=== PATIENT | male | born 1960 | race Caucasian/White ===

== ENCOUNTER 2020-03-19 01:48 | Emergency (ER) | payer OTHER ==
[~2020-03-19] VITALS: Ht 172.7 cm; Wt 86.2 kg
[2020-03-19 01:48] VITALS: BP 134/84
[2020-03-19] MEDS ORDERED: NOHOMEMEDICATIONS (01:55)
[2020-03-19] MEDS ORDERED: CEFUROXIME500 MG PO (02:19)
[2020-03-19] MEDS ORDERED: DOXYCYCLINE 10100 MG PO (02:19)
[2020-03-19] MEDS ORDERED: VIRTUSSIN AC L118 ML PO (02:19)
== END 2020-03-19 02:49 | disposition home or self-care (01) ==
LOC: ER 01:48
DX: R05 Cough (principal); Z20.828 Contact with and (suspected) exposure to other viral communicable diseases; R50.9 Fever, unspecified; R51 Headache; R11.0 Nausea; R09.89 Other specified symptoms and signs involving the circulatory and respiratory systems; Z98.890 Other specified postprocedural states

== ENCOUNTER 2020-03-22 10:34 | Inpatient (IN) | payer OTHER ==
[~2020-03-22] VITALS: Ht 172.7 cm; Wt 68.6 kg
[2020-03-22] VITALS (20 sets, daily range): BP systolic 82–125; BP diastolic 52–83
[~2020-03-22 10:34] MED LIST: CEFUROXIME500 MG PO; DOXYCYCLINE 10100 MG PO; NOHOMEMEDICATIONS; VIRTUSSIN AC L118 ML PO
[2020-03-22 10:50] LABS: BASOPHILS 1.4 % (0.0-2.0); HEMATOCRIT 45.3 % (42.0-52.0); HEMOGLOBIN 15.7 gm/dL (14.0-18.0); LYMPHOCYTES 8.4 % (24.0-44.0); MCH 31.7 pg (26.0-34.0); MCHC 34.8 g/dL (28.0-37.0); MCV 91.1 fL (80.0-100.0); PLATELET COUNT 204 thou/uL (150-400); POLYS 85.2 % (36.0-66.0); RBC 4.97 mil/uL (4.50-6.00); RDW 13.7 % (10.5-14.5); WBC 10.6 thou/uL (4.0-11.0)
[2020-03-22 10:56] LABS: CALCIUM 8.2 mg/dL (8.5-10.1); CREATININE 1.2 mg/dL (0.7-1.3); POTASSIUM 3.5 mmol/L (3.5-5.1)
[2020-03-22 11:02] LABS: ALBUMIN 2.9 g/dL (3.4-5.0); DIRECT BILIRUBIN 0.2 mg/dL (<0.1-0.2); TOTAL BILIRUBIN 0.5 mg/dL (0.2-1.0); TOTAL PROTEIN 7.5 g/dL (6.4-8.2)
[2020-03-22 11:16] LABS: BE(vivo) -0.9 mmol/L (-2 to +3); HCO3 22.3 mmol/L (22.0-26.0); PO2 85.4 mmHg (80.0-100.0); pH 7.448 (7.360-7.450); sO2 96.9 % (92.0-98.0)
[2020-03-22 13:51] LABS: URINE BILIRUBIN NEGATIVE (Negative); URINE BLOOD 1+ (Negative); URINE CLARITY SL CLOUDY; URINE COLOR YELLOW; URINE GLUCOSE-RANDOM* NEGATIVE (Negative); URINE KETONES TRACE (Negative); URINE LEUKOCYTES-REFLEX NEGATIVE (Negative); URINE NITRITE-REFLEX NEGATIVE (Negative); URINE PROTEIN (DIPSTICK) 2+ (Negative); URINE SPECIFIC GRAVITY 1.025 (1.005-1.035); URINE UROBILINOGEN 0.2 E.U./dl (0.2-1.0)
[2020-03-22 14:20] LABS: BACTERIA-REFLEX None Seen /HPF (None Seen); CRYSTALS None Seen /LPF (None Seen); SQUAMOUS None Seen /LPF (0-3); URINE RBC 0-2 Rare /HPF (0-2); URINE WBC-REFLEX None Seen /HPF (0-5)
--- NOTE | 2020-03-22 18:15 | NUR ---
DR. BEDOYA PRESENT WITH RESPIRATORY ASSISTANCE. ETOMINDATE 40 MG IV, THEN SUCCINYLCHOLINE 40 MG IV GIVEN. BAGGED WITH 100% FIO2, THEN DR. BEDOYA PLACED A 7.5 ETT, 22CM AT TEETH. LUNGS SOUNDS PRESENT IN ALL LUNG LAUGHLIN, RT PLACED BITE BLOCK. PT BUCKING VENT, TACHYPNEIC, WHITE THIN SECRETIONS SUCTIONED. PROPOFOL INCREASED TO 70 MCG/KG/MIN FOR PT COMFORT. OG 65 CM PLACED WITH GASTRIC ASCULTATION PRESENT. PORTABLE CHEST XRAY COMPLETED.
--- NOTE | 2020-03-22 19:31 | NUR ---
VASCULAR ACCESS CONSULTED FOR PICC LINE. PT'S LABS,MEDS,HISTORY,ORDER AND CONSENT VERIFIED. ELFEGO BASILIC WAS WIDELY PATENT WITH USG. 5FR TL POWER PICC TRIMMED TO 48CM INSERTED TO 1CM EXTERNAL. STAT CXR ORDERED. DISCUSSED BENEFITS AND RISK WITH DAUGHTER, VERBALIZED UNDERSTANDING.
--- NOTE | 2020-03-22 19:57 | NUR ---
cxr confirmed picc placement, picc released for immediate use per protocol to john parada
--- NOTE | 2020-03-22 20:16 | NUR ---
PT ALERT AND ORIENTED TIMES FOUR ON ADMISSION TO ICU ROOM 241 AROUND 1720. PT ANSWERED ALL ASSESSMENT QUESTIONS. PT WAS ON A NON REBREATHER 15L. PT DID DENY ANY PAIN. PT INTUBATED AND SEDATED AROUND 1740
[2020-03-22 21:07] LABS: BE(vivo) -2.1 mmol/L (-2 to +3); HCO3 23.8 mmol/L (22.0-26.0); PCO2 44.6 mmHg (35.0-45.0); PO2 359.2 mmHg (80.0-100.0); pH 7.345 (7.360-7.450); sO2 99.8 % (92.0-98.0)
--- NOTE | 2020-03-22 21:10 | NUR ---
DR AARON CONTACTING PTS FAMILY RE REMDESIVIR. NURSE INSTRUCTED NOT TO INITIATE UNTIL DR AARON TALKED WITH . 2104 PROPOFOL DECREASED FROM 79 TO 74, BP 88/56.
--- NOTE | 2020-03-22 21:33 | NUR ---
LEFT DR AARON VOICE MAIL RE COVID SWAB NOT BEING RUN BY LAB UNTIL AM. PER REPORT FROM CHARGE NURSE, WAS WAITING ON RESULTS PRIOR TO TALKING WITH RE REDEMISVIR AND STARTING MEDICATION. NURSE NOT STARTING MEDICATION UNTIL RETURNS CALL.
--- NOTE | 2020-03-22 21:36 | NUR ---
DR AARON RETURNED CALL, NOT GIVING REDEMISVIR UNTIL SWAB TEST COMPLETED. DR AARON WANTS NURSES TO CALL HIM WITH RESULTS IN AM. CHARGE NURSE UPDATED.
--- NOTE | 2020-03-22 22:38 | NUR ---
HR 48, SBP96. PROPOFOL DECREASED TO 50, CHARGE NURSE UPDATED.
--- NOTE | 2020-03-22 23:43 | NUR ---
PT RESTING IN BED ON VENTILATOR. FENTANYL STARTED BY CHARGE NURSE. PROPOFOL TITRATED. . IVF AND ANTIBIOTICS INITIATED. CAMPOS TO DD, SCDS INTACT. RESTRAINTS SOFT WRIST INTACT. DAUGHTER CALLED FOR UPDATE, SHE IS HOME COVID POSITIVE, TEARFUL SHARING HER FEARS AND CONCERNS. STATED THAT HER FATHER ACTS A FATHER FIGURE TO SEVERAL OF HER FRIENDS AND HELPS TEACH BOXING AT A GYM. RESPIRATORY THERAPIST DECREASING FIO2 FROM 100% TO 70%.
[2020-03-23] VITALS (49 sets, daily range): BP systolic 84–110; BP diastolic 37–83
--- NOTE | 2020-03-23 02:15 | NUR ---
Titrated propofol to 45. hr 44.
--- NOTE | 2020-03-23 04:22 | NUR ---
Propofol decreased to 40, charge nurse updated.
[2020-03-23 05:11] LABS: BE(vivo) -5.3 mmol/L (-2 to +3); HCO3 20.2 mmol/L (22.0-26.0); PCO2 39.8 mmHg (35.0-45.0); PO2 131.6 mmHg (80.0-100.0); sO2 98.4 % (92.0-98.0)
[2020-03-23 05:13] LABS: pH 7.324 (7.360-7.450)
[2020-03-23 05:25] LABS: ABSOLUTE NEUTROPHILS 7.2 thou/uL (1.4-8.2); BASOPHILS 0.2 % (0.0-2.0); HEMATOCRIT 41.7 % (42.0-52.0); HEMOGLOBIN 14.1 gm/dL (14.0-18.0); MCH 31.6 pg (26.0-34.0); MCHC 33.8 g/dL (28.0-37.0); MCV 93.3 fL (80.0-100.0); MONOCYTES 4.5 % (1.0-8.0); PLATELET COUNT 205 thou/uL (150-400); POLYS 85.3 % (36.0-66.0); RBC 4.47 mil/uL (4.50-6.00); RDW 13.9 % (10.5-14.5); WBC 8.5 thou/uL (4.0-11.0)
[2020-03-23 05:35] LABS: FIBRINOGEN 510.9 mg/dL (210-360); INR 1.1; PROTIME 11.5 Seconds (9.3-11.4)
[2020-03-23 05:49] LABS: ALBUMIN 2.4 g/dL (3.4-5.0); CALCIUM 8.1 mg/dL (8.5-10.1); CREATININE 0.8 mg/dL (0.7-1.3); POTASSIUM 4.2 mmol/L (3.5-5.1); TOTAL BILIRUBIN 0.4 mg/dL (0.2-1.0); TOTAL PROTEIN 6.5 g/dL (6.4-8.2)
[2020-03-23 06:04] LABS: HIV ANTIBODY Non Reactive (Non Reactive)
--- NOTE | 2020-03-23 06:10 | NUR ---
SHARED VS WITH CHARGE NURSE, STOPPED PROPOFOL HR REMAINS 45, SBP 89. MONITORING FOR AWAKENING THEN WILL RESTART.
--- NOTE | 2020-03-23 07:58 | EKG ---
[facility] [place] [address] ELECTROCARDIOGRAM REPORT Name: RADHA KEITH Room #: 241-P ADM IN M.R.#: [id number] Admission: 03/22/20 Attend Phys: Todd Castro Discharge: Date of : 60 Report #: [id number] THIS REPORT FOR: cc: [facility] - Clinic physician unknown [facility] - Clinic physician unknown Bin Holland MD [facility] THIS REPORT FOR: //name// [facility] ED Test Date: 2020-03-22 Test Time: 10:46:46 Pat Name: RADHA KEITH Department: Room: [facility] Gender: M 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
--- NOTE | 2020-03-23 09:07 | NUR ---
Received consult to start enteral nutrition. Recommend vital high protein at 30ml/hr with goal of 55ml/hr while on propofol. Defer fluid needs to physician. Pt currently has ivf running
--- NOTE | 2020-03-23 10:15 | NUR ---
chart review. pt on vent, unable to visit with him. + for covid. he is from home, his daughter lives with him. she is at home + for covid as well. cm visited with daughter elijah via phone call, education on dcp and cm. " he was independent and active. just retired. no dme. drives vehicle. primary dr is dr elliott holley. he is helpful when people need it. please cont to let me know how he is do"/daughter. will cont following as needed for dc needs.
--- NOTE | 2020-03-23 10:31 | NUR ---
RN SPOKE WITH DR. AARON AND REPORTED POSITIVE COVID-[address] AARON STATED TO GO AHEAD AND GIVE ORDERED MEDICATION, SEE MAR. PHYSICIAN INSTRUCTED RN TO CALL NEXT OF KIN AND LET THEM KNOW PT WILL BE STARTED ON NEW MEDICATION, SEE MAR. RN SPOKE WITH PT'S DAUGHTER SALMA AND SHE STATED SHE WAS THANKFUL FOR THE UPDATE REGARDING COURSE OF TREATMENT.
--- NOTE | 2020-03-23 18:55 | NUR ---
SPOKE TO FISH PROCESSOR. KEEP LEVOPHED ON HAND IN CASE NEEDED FOR B/P SUPPORT. DO NOT START CARDIZEM GTT AT THIS TIME. GIVE 0.25 IV DIG X1 NOW AND GIVE 0.25 IV DIG AT 2200.
[2020-03-23 19:07] LABS: MAGNESIUM 2.5 mg/dL (1.8-2.4); POTASSIUM 3.5 mmol/L (3.5-5.1)
--- NOTE | 2020-03-23 20:18 | NUR ---
APPROXIMATELY 1715 PT'S BELL SPINNER SOUSAPHONES ALARMED FOR HIGH HR. PT HAD BEEN ALL SHIFT SB WITH A RATE BETWEEN 40-75. HR ON MONITOR SHOWED [address] AARON WAS PRESENT AND GAVE ORDER TO RN FOR STAT EKG AND TO CALL HOSPITALIST WITH RESULTS. EKG SHOWED AFIB. DR. REGAN, HOSPITALIST PAGED WITH NO CALL BACK. RN THEN PAGED DR. WELCH WHO IS ICU KNUCKLE STRAP SEWER. DR. WELCH GAVE ORDERS TO START CARDIZEM GTT, SEND ELECTROLYTES AND MAG TO LAB, ORDER LEVOPHED FOR B/P SUPPORT TO KEEP MAP >60 AND TO CONSULT CARDIOLOGY. CARDIOLOGY CONSULTED AND DR. SALINAS CALLED BACK. SEE NOTE ON HIS ORDERS. REPORT GIVEN TO FOOD PRESERVATION SCIENTIST RN WHO AGREED TO GIVE MEDS ORDERED SEE ORDERS AND MAR. PT REMAINED IN AFIB AT END OF DAY SHIFT WITH HR OF 115. PT IS CURRENTLY ON LOVENOX BID.
--- NOTE | 2020-03-23 20:28 | NUR ---
1530 RECTAL TEMP PROBE INSERTED.
--- NOTE | 2020-03-23 21:30 | NUR ---
DR. AARON ORDERED TYPE AND SCREEN FOR PT. 2100 CALLED AND LEFT MESSAGE WITH ANSWERING SERVICE WITH RESULTS.
[2020-03-24] VITALS (48 sets, daily range): BP systolic 81–113; BP diastolic 52–74
[2020-03-24 05:46] LABS: ABSOLUTE NEUTROPHILS 13.2 thou/uL (1.4-8.2); BASOPHILS 0.3 % (0.0-2.0); HEMATOCRIT 40.1 % (42.0-52.0); HEMOGLOBIN 13.4 gm/dL (14.0-18.0); LYMPHOCYTES 4.2 % (24.0-44.0); MCH 31.2 pg (26.0-34.0); MCHC 33.3 g/dL (28.0-37.0); MCV 93.8 fL (80.0-100.0); MONOCYTES 3.4 % (1.0-8.0); PLATELET COUNT 240 thou/uL (150-400); POLYS 92.1 % (36.0-66.0); RBC 4.28 mil/uL (4.50-6.00); WBC 14.3 thou/uL (4.0-11.0)
[2020-03-24 05:48] LABS: INR 1.1; PROTIME 11.3 Seconds (9.3-11.4)
[2020-03-24 05:53] LABS: FIBRINOGEN 508.6 mg/dL (210-360)
[2020-03-24 06:36] LABS: ALBUMIN 2.1 g/dL (3.4-5.0); CALCIUM 7.7 mg/dL (8.5-10.1); CREATININE 0.7 mg/dL (0.7-1.3); POTASSIUM 4.3 mmol/L (3.5-5.1); TOTAL BILIRUBIN 0.2 mg/dL (0.2-1.0); TOTAL PROTEIN 5.7 g/dL (6.4-8.2)
--- NOTE | 2020-03-24 07:55 | EKG ---
[facility] [place] [address] ELECTROCARDIOGRAM REPORT Name: RADHA KEITH Reinier Room #: 241-P ADM IN M.R.#: [id number] Admission: 03/22/20 Attend Phys: Todd Castro Discharge: Date of : 60 Report #: [id number] THIS REPORT FOR: cc: [facility] - Clinic physician unknown [facility] - Clinic physician unknown Bin Holland MD [facility] ~ THIS REPORT FOR: //name// [facility] Test Date: 2020-03-23 Test Time: 17:28:18 Pat Name: RADHA KEITH Department: Room: 241 P Gender: M Quality Improvement Analyst: Romulo HAMEED : 1960 Requested By: Mika Nicholas Order Number: [id number] MD: Bin Holland Measurements Intervals [place] Rate: 110 P: [place]: QRS: -52 QRSD: 88 T: 23 QT: 334 QTc: 452 Interpretive Statements Atrial fibrillation Left anterior fascicular block Abnormal R-wave progression, early transition Compared to ECG 03/22/2020 10:46:46 Sinus rhythm no longer present Electronically Signed On 03-24-2020 7:55:40 CDT by Bin Holland [email or web address] <ELECTRONICALLY SIGNED> By: Bin Holland MD, [facility] 03/24/20 0755 1728 1728 Bin Holland MD, [facility] /EPI
--- NOTE | 2020-03-24 16:09 | NUR ---
At approximately 1530, nurse spoke to patients daughter about his status. Patient is still receiving antibiotics and plans to be prone this afternoon. Patients daughter understands father is still critical and not progressing toward goals. Patient still requries high FiO2 and PEEP to remain stable.
[2020-03-25] VITALS (52 sets, daily range): BP systolic 82–118; BP diastolic 43–79
[2020-03-25 06:30] LABS: HEMATOCRIT 38.8 % (42.0-52.0); HEMOGLOBIN 13.1 gm/dL (14.0-18.0); MCH 31.2 pg (26.0-34.0); MCHC 33.7 g/dL (28.0-37.0); MCV 92.6 fL (80.0-100.0); RBC 4.18 mil/uL (4.50-6.00); RDW 14.3 % (10.5-14.5); WBC 13.9 thou/uL (4.0-11.0)
[2020-03-25 06:42] LABS: CALCIUM 7.6 mg/dL (8.5-10.1); CREATININE 0.7 mg/dL (0.7-1.3); POTASSIUM 4.3 mmol/L (3.5-5.1); TOTAL BILIRUBIN 0.3 mg/dL (0.2-1.0)
--- NOTE | 2020-03-25 07:44 | NUR ---
Pt taken out of prone position at 0530 this a.m. Pt tolerated proning well during the night. Breath sounds went from coarse through out at beginning of shift to clear and diminished at midnight. Tube feeding restarted at goal rate of 55 cc/hr when pt in semi-fowlers position this a.m. Adequate urine output this shift, 800 cc total.
--- NOTE | 2020-03-25 11:07 | NUR ---
If pt requires daily proning for >8hr, would increase final tube feed goal rate to 85ml/hr. Otherwise continue at 55ml/hr
[2020-03-25 15:40] LABS: T-SPOT.TB Negative
--- NOTE | 2020-03-25 18:32 | NUR ---
Patient is not progressing towards goals PAtiient unable to tolerate sedatin vacation or lightening up FiO2 and PEEP. Patient therefore still requires heavy support from mechanical ventilation. Patient converted to sinus breadycardia around 1005 this morning. Patient remains in the low 50's and 60's HR. Patient requires frequent suctioning for large volumes of sputum and has coughing fits where he desats but quickly recovers. Patient remains stable but is not improving.
[2020-03-26] VITALS (47 sets, daily range): BP systolic 90–126; BP diastolic 56–80
[2020-03-26 05:44] LABS: HEMATOCRIT 39.5 % (42.0-52.0); HEMOGLOBIN 13.2 gm/dL (14.0-18.0); MCH 31.5 pg (26.0-34.0); MCHC 33.4 g/dL (28.0-37.0); MCV 94.3 fL (80.0-100.0); RBC 4.19 mil/uL (4.50-6.00); RDW 14.1 % (10.5-14.5)
[2020-03-26 06:20] LABS: CREATININE 0.6 mg/dL (0.7-1.3); MAGNESIUM 2.8 mg/dL (1.8-2.4)
--- NOTE | 2020-03-26 07:52 | NUR ---
Pt has had intermittent periods of desaturation down to 82% when sedation lightened or if pt is layed supine. Sputum initially thick, white, blood tinged but now thinner and more frothy. Pt tolerating tube feeding well, no residuals, but did start having frequent liquid brown stools, small to large amounts, especially after coughing or suctioning. Flexiseal placed to maintain skin integrity and to insure accurate I&O. Monitor has remained sinus kendell, sinus rhythm, rates 45-64. Pt tolerating lower heart rate without compromise to blood pressure or circulation.
--- NOTE | 2020-03-26 09:00 | NUR ---
PATIENT NOTED TO DESAT WITH COUGHING, ATTEMPT TO SUCTION FROTHY LT PINK SPUTUM FROM ETT AND CLEAR SECRETIONS ORALLY. RECOVERS IN NORMA 5 MINS. PORTS ON PICC LINE ARE SLUGGISH AND WHITE PORT WILL NOT IRRIGATE. IV TEAM NOTIFIED.
[2020-03-26 11:00] LABS: BE(vivo) 1.6 mmol/L (-2 to +3); HCO3 27.5 mmol/L (22.0-26.0); PCO2 48.3 mmHg (35.0-45.0); PO2 56.5 mmHg (80.0-100.0); pH 7.373 (7.360-7.450); sO2 88.4 % (92.0-98.0)
--- NOTE | 2020-03-26 12:30 | NUR ---
DR DUNN AND DR WELCH IN AND AWARE OF ABG'S AND INFORMED OF DIFFICULTY WITH PICC LINE. PLAN TO INITIATE HEPARIN DRIP.
[2020-03-26 15:10] LABS: INR 1.3; PROTIME 13.4 Seconds (9.3-11.4)
--- NOTE | 2020-03-26 17:00 | NUR ---
PATIENT COUGHING AND PROPOFOL OFF FOR A FEW MINUTES. O2 SAT IN THE LOWER 80'S AND HEART RATE UP TO THE 70'S. BP INCREASED AND RESP RATE IN THE 20'S. DOES NOT TOLERATED BEING ON SEDATION VACATION.
--- NOTE | 2020-03-26 21:00 | NUR ---
PATIENT NOT PROGRESSING TOWARDS OUTCOME GOALS EVIDENT BY DESATING WITH COUGHING. HEPARIN DRIP STARTED AND BOLUS GIVEN PER ORDER. IV TEAM WORKING TO OPEN PICC LINE BUT UNABLE TO USE BUT ONE LINE, DR WELCH BY AND AWARE OF STATUS OF LINE. ORDERS NOTED TO PLACE NEW LINE IF UNABLE TO USE PRESENT PICC.
--- NOTE | 2020-03-26 23:03 | NUR ---
RISK, BENEFITS, AND ALTERNATIVE TREATMENT DISCUSSED WITH THE PATIENT'S RELATED TO CENTRAL LINE PLACEMENT. TEACHING GIVEN RELATED TO POSSIBLE COMPLICATIONS SUCH BLEEDING, INFECTION, CLOT, OR VESSEL PERFORATION. INSTRUCTION GIVEN RELATED TO CLABSI PREVENTION WITH LITERATURE PROVIDED. TRIPLE LUMEN CATHETER PLACED TO RIJ. ONE STICK AND NO COMPLICATIONS. PATIENT INTUBATED. NO COMPLICATIONS. PICC IN RUE DC'D PRIOR TO RIJ PLACEMENT. RIJ CATHETER TRIMMED TO 28CM. WITH 10 CM EXTERNAL. V.O. 10%. CHEST XRAY CONFIRMED TIP OF CATHETER IS IN SVC.
[2020-03-27] VITALS (17 sets, daily range): BP systolic 96–124; BP diastolic 54–79
--- NOTE | 2020-03-27 00:20 | NUR ---
PT BECAME VERY RESTLESS AND COUGHING PINK FROTHY SPUTUM. DR WELCH CALLED 60 MG LASIX IV GIVEN AND CXRAY DONE. WILL CONT TO MONITOR.
[2020-03-27 05:21] LABS: BE(vivo) 6.1 mmol/L (-2 to +3); HCO3 31.7 mmol/L (22.0-26.0); PCO2 49.1 mmHg (35.0-45.0); pH 7.428 (7.360-7.450); sO2 94.5 % (92.0-98.0)
[2020-03-27 05:32] LABS: HEMATOCRIT 42.2 % (42.0-52.0); HEMOGLOBIN 13.8 gm/dL (14.0-18.0); MCH 30.8 pg (26.0-34.0); MCHC 32.8 g/dL (28.0-37.0); MCV 93.8 fL (80.0-100.0); RBC 4.49 mil/uL (4.50-6.00); RDW 14.2 % (10.5-14.5); WBC 12.8 thou/uL (4.0-11.0)
--- NOTE | 2020-03-27 06:00 | NUR ---
REMAINS INTUBATED AND SEDATED NO FURTHER COUGHING SPELLS. DIURECED WELL 4000 CC UO THIS SHIFT. LUNGS CLEAR. REMAINS ON HEPARIN GTT. APTT THERAPUTIC. ISOLATION FOR COVID 19. WILL CONT TO MONITOR.
[2020-03-27 06:14] LABS: CALCIUM 8.3 mg/dL (8.5-10.1); CREATININE 0.8 mg/dL (0.7-1.3); POTASSIUM 3.7 mmol/L (3.5-5.1)
--- NOTE | 2020-03-27 11:25 | NUR ---
chart review. pt remains on vent with tf nutritional support. no anticpated dc over weekend.
--- NOTE | 2020-03-27 19:11 | NUR ---
ASSESSMENTS AND INTERVENTIONS DOCCUMENTED. NO MAJOR CONCERNS AT THIS TIME. PATIENT DESATS WHEN NOT ON SEDATION. PATIENT PROGRESSING TOAWARDS GOALS AT THIS TIME EVIDENCE BY BEING TITRATED DOWN ON O2
[2020-03-27 23:06] LABS: ADENOVIRUS Negative (Negative); INFLUENZA A Negative (Negative); INFLUENZA B Negative (Negative); METAPNEUMOVIRUS Negative (Negative); PARAINFLUENZA 1 Negative (Negative); PARAINFLUENZA 2 Negative (Negative); PARAINFLUENZA 3 Negative (Negative); RHINOVIRUS Negative (Negative); RSV A Negative (Negative); RSV B Negative (Negative)
[2020-03-28] VITALS (24 sets, daily range): BP systolic 105–138; BP diastolic 64–84
[2020-03-28 05:46] LABS: HEMATOCRIT 40.3 % (42.0-52.0); HEMOGLOBIN 13.5 gm/dL (14.0-18.0); MCH 31.6 pg (26.0-34.0); MCHC 33.6 g/dL (28.0-37.0); RBC 4.29 mil/uL (4.50-6.00); RDW 14.4 % (10.5-14.5); WBC 11.5 thou/uL (4.0-11.0)
[2020-03-28 06:08] LABS: CALCIUM 7.7 mg/dL (8.5-10.1); CREATININE 0.6 mg/dL (0.7-1.3); POTASSIUM 4.5 mmol/L (3.5-5.1)
--- NOTE | 2020-03-28 19:23 | NUR ---
NO PROGRESS TOWARDS GOALS. FIO2 AT 100%. LUNGS COURSE THROUGHOUT. ANY MOVEMENT OR ACTIVITY WITH PATIENT CAUSES SEVERE COUGHING WITH STRIDER-LIKE SOUND AND PT DESATS IMMEDIATELY TO LOW 80'S. NO PRONE TODAY DUE TO HIS DESATURATION WITH ACTIVITY OR MOVEMENT.
[2020-03-29] VITALS (24 sets, daily range): BP systolic 98–135; BP diastolic 51–87
[2020-03-29 05:33] LABS: HCO3 31.4 mmol/L (22.0-26.0); PO2 56.9 mmHg (80.0-100.0); pH 7.433 (7.360-7.450); sO2 90.2 % (92.0-98.0)
[2020-03-29 07:16] LABS: HEMATOCRIT 40.8 % (42.0-52.0); HEMOGLOBIN 13.7 gm/dL (14.0-18.0); MCH 31.2 pg (26.0-34.0); MCHC 33.5 g/dL (28.0-37.0); MCV 93.1 fL (80.0-100.0); RBC 4.38 mil/uL (4.50-6.00); RDW 14.4 % (10.5-14.5)
[2020-03-29 07:27] LABS: CALCIUM 8.2 mg/dL (8.5-10.1); CREATININE 0.7 mg/dL (0.7-1.3); POTASSIUM 4.4 mmol/L (3.5-5.1)
[2020-03-30] VITALS (23 sets, daily range): BP systolic 103–127; BP diastolic 58–75
--- NOTE | 2020-03-30 02:23 | NUR ---
PT IN PRONE POSITION UPON ASSUMPTION OF CARE AT 1900. TOLERATING SAID POSITION WELL WITH O2 SAT OF 98%. PT HAD BEEN IN PRONE POSITION SINCE NOON PER REPORT. PT WAS FLIPED TO SEMI-FOWLERS AT 0030. HE TOLERATED THE TURN WELL. TUBE FEEDING RESTARTED AT 0040. CURRENT O2 SAT OF 100%. SEDATION VACATION AT 0040 FOR 13 MINUTES; PT DOESNT OPEN EYES OR FOLLOW COMMANDS, BUT HE HAS POSITIVE COUGH/GAG, AND FACIAL GRIMACES TO PAIN. AVERAGE OF 75ML/HR U/O. PT IS STABLE, WILL CONTINUE TO MONITOR PER POC.
[2020-03-30 04:39] LABS: PO2 98.1 mmHg (80.0-100.0); pH 7.361 (7.360-7.450); sO2 97.1 % (92.0-98.0)
[2020-03-30 05:57] LABS: ABSOLUTE NEUTROPHILS 18.2 thou/uL (1.4-8.2); HEMATOCRIT 39.5 % (42.0-52.0); HEMOGLOBIN 13.3 gm/dL (14.0-18.0); LYMPHOCYTES 2.4 % (24.0-44.0); MCH 31.4 pg (26.0-34.0); MCHC 33.5 g/dL (28.0-37.0); MCV 93.5 fL (80.0-100.0); MONOCYTES 2.7 % (1.0-8.0); PLATELET COUNT 318 thou/uL (150-400); POLYS 94.9 % (36.0-66.0); RBC 4.23 mil/uL (4.50-6.00); RDW 14.3 % (10.5-14.5); WBC 19.2 thou/uL (4.0-11.0)
[2020-03-30 06:03] LABS: INR 1.3; PROTIME 13.8 Seconds (9.3-11.4)
[2020-03-30 06:24] LABS: ALBUMIN 1.7 g/dL (3.4-5.0); CREATININE 0.7 mg/dL (0.7-1.3); MAGNESIUM 2.4 mg/dL (1.8-2.4); PHOSPHORUS 3.3 mg/dL (2.5-4.9); POTASSIUM 4.9 mmol/L (3.5-5.1); TOTAL BILIRUBIN 0.5 mg/dL (0.2-1.0); TOTAL PROTEIN 6.3 g/dL (6.4-8.2)
--- NOTE | 2020-03-30 09:16 | NUR ---
bill with [facility] called and left message to offer assistance with dcp if needed. if he needs home care, have to use [facility] [phone], other question call bill at ext [phone].
--- NOTE | 2020-03-30 19:46 | NUR ---
SPOKE WITH DAUGHTER SALMA TODAY AND UPDATED HER ON PATIENT CONDITION. CONTINUES ON 100% FIO2 AND PEEP 14. PRONED TODAY AT NOON. AIR LEAK AROUND CUFF, TUBE VERY POSITIONAL. MAINTAINING VOLUMES AND SATS AT THIS TIME. DR. WELCH NOTIFIED AND ORDER RECIEVED TO DECREASE PEEP TO 12. TMAX 100. SR ON MONITOR. BP WNL. SEDATED WITH PROPOFOL AND FENTANYL. TOLERATING TUBE FEEDS AT GOAL.
[2020-03-31] VITALS (25 sets, daily range): BP systolic 91–136; BP diastolic 57–76
--- NOTE | 2020-03-31 00:38 | NUR ---
ASSUMED CARE OF PATIENT AT 1900. IN PRONE POSITION, HOWEVER VOLUMES NOT BEING MET, PATIENT TURNED BACK OVER. NO S/S OF DISTRESS THIS SHIFT. REMAINS ON 100% O2. NOT PROGRESSING TOWARDS POC GOALS.
[2020-03-31 05:21] LABS: BE(vivo) 8.9 mmol/L (-2 to +3); HCO3 37.5 mmol/L (22.0-26.0); PCO2 70.6 mmHg (35.0-45.0); PO2 107.4 mmHg (80.0-100.0); pH 7.343 (7.360-7.450); sO2 97.5 % (92.0-98.0)
[2020-03-31 05:58] LABS: HEMATOCRIT 38.9 % (42.0-52.0); HEMOGLOBIN 12.7 gm/dL (14.0-18.0); MCH 31.1 pg (26.0-34.0); MCHC 32.7 g/dL (28.0-37.0); MCV 95.3 fL (80.0-100.0); RBC 4.08 mil/uL (4.50-6.00); RDW 14.6 % (10.5-14.5); WBC 17.7 thou/uL (4.0-11.0)
[2020-03-31 06:33] LABS: ANION GAP < 0 mmol/L (7-16); BUN 27 mg/dL (7-18); CALCIUM 8.1 mg/dL (8.5-10.1); CHLORIDE 100 mmol/L (98-107); CO2 38 mmol/L (21-32); CREATININE 0.7 mg/dL (0.7-1.3); GLUCOSE 198 mg/dL (74-106); POTASSIUM 4.9 mmol/L (3.5-5.1); SODIUM 136 mmol/L (136-145)
--- NOTE | 2020-03-31 13:43 | NUR ---
PATIENT RE INTUBATED AT [address] WELCH WITH 2 RT ASSIST AND RN.
--- NOTE | 2020-03-31 15:54 | NUR ---
ETT POSITION EVALUATED. WHILE PALPATING ETT IN THE BACK OF THE ORAL PHARYNX, ETT WAS FOUND TO BE BENT TO THE POINT OF OCCLUSION. AN ATTEMPT TO PLACE IN NORMAL POSITION WAS UNSUCCESSFUL. PATENCY FUNCTION OF ETT BECAME QUESTIONALBE. TUBE WAS SUBSEQUENTLY WITHDRAWN AND PT WAS VENTILATED WITH BAG AND MASK UNTIL DR WELCH'S ARRIVAL. VITAL SIGNS AND SATS REMAINED STABLE DURING BAG/MASK VENTILATION AND RE-INTUBATION. ORDERS RECIEVED FOR CXR AND ABGS POST RE-INTUBATION.
[2020-03-31 15:55] LABS: BE(vivo) 7.6 mmol/L (-2 to +3); HCO3 35.3 mmol/L (22.0-26.0); PCO2 64.5 mmHg (35.0-45.0); PO2 127.1 mmHg (80.0-100.0); pH 7.356 (7.360-7.450); sO2 98.3 % (92.0-98.0)
--- NOTE | 2020-03-31 18:55 | NUR ---
PERIODICALS LIBRARY ASSISTANT PICKED UP EXTRA BAG OF FENTANYL AROUN 1720. MARCUS Silva RN WITNESSED.
[2020-04-01] VITALS (26 sets, daily range): BP systolic 96–147; BP diastolic 52–83
[2020-04-01 06:01] LABS: BE(vivo) 10.6 mmol/L (-2 to +3); HCO3 36.2 mmol/L (22.0-26.0); PCO2 52.1 mmHg (35.0-45.0); PO2 57.2 mmHg (80.0-100.0); sO2 90.7 % (92.0-98.0)
[2020-04-01 07:08] LABS: HEMATOCRIT 37.2 % (42.0-52.0); HEMOGLOBIN 12.4 gm/dL (14.0-18.0); MCH 31.3 pg (26.0-34.0); MCHC 33.4 g/dL (28.0-37.0); MCV 93.6 fL (80.0-100.0); RBC 3.97 mil/uL (4.50-6.00); RDW 14.8 % (10.5-14.5); WBC 21.3 thou/uL (4.0-11.0)
[2020-04-01 07:29] LABS: ANION GAP < 0 mmol/L (7-16); BUN 30 mg/dL (7-18); CALCIUM 7.8 mg/dL (8.5-10.1); CHLORIDE 101 mmol/L (98-107); CO2 38 mmol/L (21-32); CREATININE 0.7 mg/dL (0.7-1.3); GLUCOSE 190 mg/dL (74-106); POTASSIUM 4.8 mmol/L (3.5-5.1); SODIUM 138 mmol/L (136-145)
--- NOTE | 2020-04-01 07:53 | NUR ---
PT ON PROPOFOL AT 60MCG AND FENTANYL AT 50 MCG. SEDATION VACATION AT 2120 FOR 10 MINUTES; PT BECAME REALLY TACHYPNEIC, HAS A STRONG COUGH AND GAG REFLEX, FACIAL GRIMACES TO PAIN HOWEVER DOESNT FOLLOW CONMMANDS. FIOZ DECREASED TO 70% THIS SHIFT; SATS STABLE IN THE 96-99%. TEMP MAX OF 99.9, TYLENOL GIVEN. PT OVERBREATHING THE SET AC RATE, PROPOFOL INCREASED TO 70MCG THIS SHIFT. ASSESMENTS AND MEDS GIVEN ARE CHARTED. TOTAL U/O OF 900ML THIS SHIFT. PT IS STABLE, WILL CONTINUE TO MONITOR
--- NOTE | 2020-04-01 19:12 | NUR ---
ASSESSMENTS AND INTERVENTIONS DOCCUMENTED. PATIENT APPROPRIATE TO PRONE THIS SHIFT. PATIENT PRONED, NO MAJOR CONCERNS PATIENT TOLERATING IT WELL. PATIENT IS PROGRESSING TOWARDS GOALS AT THIS TIME EVIDENCE BY BEING ON 70% fio2 AND TOLERATING PRONE VENTILATION
[2020-04-02] VITALS (27 sets, daily range): BP systolic 87–142; BP diastolic 50–80
--- NOTE | 2020-04-02 02:36 | NUR ---
ASSUMED CARE OF PATIENT AT 1900. PRONE UNTIL 2300, ON BACK WITH ASSISTANCE OF RT AND 2 OTHER NURSES. FIO2 INCREASED TEMPORARILY. TOLERATED PRONING WELL. DAUGHTER SALMA CALLED FOR UPDATE. POC REVIEWED. SHE WOULD LIKE TO FACETIME IF POSSIBLE, WILL DISCUSS WITH AM STAFF. WORKING TOWARDS POC GOALS.
[2020-04-02 05:06] LABS: CREATININE 0.7 mg/dL (0.7-1.3); POTASSIUM 5.2 mmol/L (3.5-5.1)
--- NOTE | 2020-04-02 15:27 | NUR ---
ASSUMED CARE AT 0700. PT SEDATED ON VENTILATOR. CONTINUES WITH POC PER ORDERS. PRONE POSITIONING CHANGED- Q12H PER DR WELCH. APTT WAS CRITICALLY HIGH AT 1200- 86.5, DECREASED HEPARIN GTT PER PROTOCOL, RECHECK APTT AT 2049. ASSESSMENTS PER CHART. NAD NOTED EXCEPT WHEN TURNING PT TO LEFT SIDE TODAY PT DESATTED TO 82% AND BECAME TACHYPNIC. TOOK APPROX 15MIN TO RECOVER. WILL CONT TO MONITOR.
--- NOTE | 2020-04-02 15:27 | NUR ---
SW reviewed chart and spoke with nursing. Pt in ICU and in Enhanced Isolation due to COVID-19. Pt remains intubated. No ready for vent weaning trials. Pt has been febrile and is on IV abx. Pt finished course of Remdesivir. Pt will need therapy evals ordered when able to participate. DAVID is following to assist as needed with discharge planning.
[2020-04-03] VITALS (23 sets, daily range): BP systolic 82–140; BP diastolic 49–78
[2020-04-03 03:46] LABS: ABSOLUTE NEUTROPHILS 13.5 thou/uL (1.4-8.2); BASOPHILS 0.9 % (0.0-2.0); EOSINOPHILS 1.4 % (0.0-3.0); HEMATOCRIT 39.5 % (42.0-52.0); HEMOGLOBIN 12.8 gm/dL (14.0-18.0); LYMPHOCYTES 3.8 % (24.0-44.0); MCH 30.7 pg (26.0-34.0); MCHC 32.4 g/dL (28.0-37.0); MCV 94.7 fL (80.0-100.0); MONOCYTES 1.9 % (1.0-8.0); PLATELET COUNT 179 thou/uL (150-400); RBC 4.17 mil/uL (4.50-6.00); RDW 14.8 % (10.5-14.5); WBC 14.7 thou/uL (4.0-11.0)
[2020-04-03 04:00] LABS: ALBUMIN 1.5 g/dL (3.4-5.0); ANION GAP < 0 mmol/L (7-16); BUN 28 mg/dL (7-18); CALCIUM 7.9 mg/dL (8.5-10.1); CHLORIDE 99 mmol/L (98-107); CO2 41 mmol/L (21-32); CREATININE 0.7 mg/dL (0.7-1.3); GLUCOSE 145 mg/dL (74-106); POTASSIUM 4.7 mmol/L (3.5-5.1); SGOT 51 U/L (15-37); SGPT 32 U/L (30-65); SODIUM 136 mmol/L (136-145); TOTAL BILIRUBIN 0.8 mg/dL (0.2-1.0); TOTAL PROTEIN 6.1 g/dL (6.4-8.2)
[2020-04-03 04:01] LABS: INR 1.4; PROTIME 14.7 Seconds (9.3-11.4)
[2020-04-03 04:09] LABS: D-DIMER 13.47 ug/mLFEU (0.19-0.50); FIBRINOGEN 764.2 mg/dL (210-360)
[2020-04-03 05:39] LABS: HCO3 39.8 mmol/L (22.0-26.0); PO2 93.5 mmHg (80.0-100.0); sO2 96.5 % (92.0-98.0)
[2020-04-03 05:40] LABS: PCO2 73.8 mmHg (35.0-45.0)
--- NOTE | 2020-04-03 06:28 | NUR ---
ASSUMED CARE OF PATIENT AT 1900. PRONE UNTIL 0100. TOLERATED WELL. DAUGHTER CALLED WITH [employer] ON [employer]. SHE WAS ABLE TO SPEND ABOUT 15 MINUTES TALKING TO PATIENT. ALL QUESTIONS ANSWERED. NOT PROGRESSING WELL TOWARDS POC GOALS EVIDENCED BY CONTINUED HI FIO2 NEEDS.
--- NOTE | 2020-04-03 15:47 | NUR ---
SW reviewed chart. Pt remains in ICU in Enhanced Isolation due to COVID-19. Pt is intubated and sedated. No weekend discharge planned. SW is following to assist as needed with discharge planning.
--- NOTE | 2020-04-03 17:08 | NUR ---
RTLIJ CL REPLACED THE LINE PLACED BEFOR WAS MALPOSITIONED. PT MARISOL WELL. PLEASE SEE NI FOR
[2020-04-03 17:17] LABS: BE(vivo) 11.6 mmol/L (-2 to +3); PCO2 50.2 mmHg (35.0-45.0); pH 7.485 (7.360-7.450); sO2 95.3 % (92.0-98.0)
--- NOTE | 2020-04-03 19:53 | NUR ---
FIO2 AT .90% SEDATED WITH FENTANYL AND PROPOFOL EFFECTIVELY. PRONED AT 1730. TMAX 38.4. DID NOT SPEAK WITH DAUGHTER THIS SHIFT.
[2020-04-04] VITALS (25 sets, daily range): BP systolic 87–122; BP diastolic 51–71
--- NOTE | 2020-04-04 03:26 | NUR ---
ASSUMED CARE OF PATIENT AT 1900. IN PRONE POSITION. CXR RESULTS STATE PICC LINE CANNOT BE VISUALIZED. IV TEAM CALLED, LEFT MESSAGE. 2 PERIPHERAL LINES INFUSING GTTS. CONTINUES TO BECOME EXTREMELY TACHYPNIC AND TACHYCARDIC WHEN ANY SEDATION IS LOWERED. DAUGHTER CALLED THIS EVENING. UPDATED ON POC. WOULD LIKE TO SPEAK WITH A PHYSICIAN, STATES SHE HAS NOT TALKED TO ANY SINCE HER DAD HAS BEEN ADMITTED. DISCUSSED POSSIBLE NEED FOR TRACH. SHE STATES SHE WOULD WANT THAT SHOULD HE NEED IT. WILL PASS ON TO DAY SHIFT TO DISCUSS WITH PHYSICIANS. NO OTHER CONCERNS AT THIS TIME. WORKING TOWARDS POC GOALS.
[2020-04-04 05:06] LABS: CALCIUM 8.1 mg/dL (8.5-10.1); CREATININE 0.8 mg/dL (0.7-1.3)
--- NOTE | 2020-04-04 10:01 | NUR ---
ASSESSMENTS AND INTERVENTIONS DOCCUMENTED. PATIENT SEDATED AND RESTING. NO MAJOR CONCERNS AT THIS TIME. MAYNOR CRUZ RN CALLING TO CONFIRM PLACEMENT OF IJ. LINE IS IN PLACE AND IN USE.
[2020-04-05] VITALS (24 sets, daily range): BP systolic 89–122; BP diastolic 51–73
[2020-04-05 05:39] LABS: CALCIUM 8.1 mg/dL (8.5-10.1); CREATININE 0.8 mg/dL (0.7-1.3)
--- NOTE | 2020-04-05 06:00 | NUR ---
REMAINS INTUBATED AND SEDATED WITH PROPOFOL 70 MCG AND FENTANYL 50 MCG HEPARIN GTT AT 21.1 UNITS OR 17.5 CC/HR APTT 69.6 THERAPUTIC BATHED PT WAS IN PRONE POSITION FOR 12 HOURS. BACK TO BACK AT 0200. 1000 CC UO THIS SHIFT. FOLLOWS NO COMMANDS. REMAINS IN SINUS KIMBERLY TO SINUS RHYTHM. ZERO STOOL FROM FLEXISEAL WILL CONT TO MONITOR.
--- NOTE | 2020-04-05 19:02 | NUR ---
ASSUMED CARE AT 0700. ASSESSMENTS PER CHART. PT POSTIONED PRONE AT 1400 TODAY . INCREASED TF RATE TO 65ML/HR PER DIETARY RECOMMENDATION TO INCREASE TO GOAL OF 85ML/HR IF PT IS PRONING >8HRS DAY. ORDER UPDATED. PT TOLERATING PRONATION WELL. VSS. NO ACUTE DISTRESS THROUGHOUT SHIFT. PROGRESSING TOWARDS GOALS EVIDENCE BY FI02 DECREASED FROM 100 TO 80% TODAY AND MAINTAINING. REPORT GIVEN TO OSBALDO RODRIGUEZ FOR INSPECTOR MOTOR VEHICLES.
[2020-04-06] VITALS (24 sets, daily range): BP systolic 87–116; BP diastolic 49–68
--- NOTE | 2020-04-06 03:49 | NUR ---
ASSUMED CARE OF PATIENT AT 1900. IN PRONE POSITION UNTIL 0200. TOLERATES VERY WELL. NO S/S OF DISTRESS. DAUGHTER CALLED FOR UPDATE. STATES SHE TALKED WITH PHYSICIAN OVER THE WEEKEND. UNDERSTANDS PLANS TO DATE. WOULD LIKE TO FACETIME TOMORROW IF POSSIBLE. WORKING TOWARDS POC GOALS.
[2020-04-06 04:12] LABS: ANION GAP < 0 mmol/L (7-16); BUN 28 mg/dL (7-18); CALCIUM 8.1 mg/dL (8.5-10.1); CHLORIDE 104 mmol/L (98-107); CO2 40 mmol/L (21-32); CREATININE 0.7 mg/dL (0.7-1.3); GLUCOSE 177 mg/dL (74-106); SODIUM 143 mmol/L (136-145)
[2020-04-06 04:18] LABS: POTASSIUM 3.7 mmol/L (3.5-5.1)
[2020-04-06 09:16] LABS: ABSOLUTE NEUTROPHILS 11.5 thou/uL (1.4-8.2); HEMATOCRIT 34.6 % (42.0-52.0); HEMOGLOBIN 11.2 gm/dL (14.0-18.0); LYMPHOCYTES 3.8 % (24.0-44.0); MCH 30.6 pg (26.0-34.0); MCHC 32.5 g/dL (28.0-37.0); MCV 94.3 fL (80.0-100.0); MONOCYTES 3.9 % (1.0-8.0); POLYS 91.3 % (36.0-66.0); RBC 3.67 mil/uL (4.50-6.00); RDW 14.5 % (10.5-14.5); WBC 12.6 thou/uL (4.0-11.0)
[2020-04-06 09:17] LABS: PLATELET COUNT 169 thou/uL (150-400)
[2020-04-06 12:21] LABS: BE(vivo) 10.1 mmol/L (-2 to +3); HCO3 37.7 mmol/L (22.0-26.0); PO2 64.8 mmHg (80.0-100.0); pH 7.379 (7.360-7.450); sO2 91.6 % (92.0-98.0)
[2020-04-06 12:22] LABS: PCO2 65.3 mmHg (35.0-45.0)
--- NOTE | 2020-04-06 16:33 | NUR ---
SW reviewed chart and spoke with nursing. Pt in ICU and remains in ENhanced Isolation due to COVID 19. Pt is intubated. Pt is on IV abx/IV lasix. Pt is not ready for weaning at this time. SW is following to assist as needed.
--- NOTE | 2020-04-06 18:36 | NUR ---
ASSESSMENTS AND INTERVENTIONS DOCCUMENTED. ELKE CONROY ROUNDING ON PATIENT THIS MORNING. ORDERS FOR REGLAN RECIEVED DUE TO PATIENTS REDUCTION IN STOOL OUT PUT AND INCREASE IN RESIDUALS. SISTER OF PATIENT CALLING ASKING FOR AN UPDATE. UNABLE TO UPDATE THIS PERSON BECAUSE SHE DID NOT HAVE THE PATIENT'S ACCESS CODE. SISTER STATNING " I WANT TO ADVOCATE FOR MY BROTHER. 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 I DONT KNOW WHY THEY WONT LIGHTEN UP HIS SEDATION, HE HAS BEEN SITTING THERE LIKE A SACK OF POTATOES." RN EXPLAINING TO PATIENT THAT NO INFORMATION CAN BE OBTAINED ABOUT PATIENTS STATUS WITHOUT THE CODE. SISTER TO CONTANCT PATIENTS DAUGHTER. ASSESSMENTS AND INTERVENTIONS DOCCUMENTED. PATIENT IS NOT PROGRESSING TOWARDS GOALS AT THIS TIME. HEPARIN GTT ON HOLD, BLEEDING NOTED IN ETT TUBE, ORAL SUCTION AND NOSE. RN SPEAKING WITH DR. BEDOYA ABOUT HEPARIN GTT. PATIENT STILL DOING PRONE VENTILLATION AT THIS TIME.
[2020-04-06 21:02] LABS: ABSOLUTE NEUTROPHILS 14.4 thou/uL (1.4-8.2); BASOPHILS 0.3 % (0.0-2.0); HEMATOCRIT 34.2 % (42.0-52.0); HEMOGLOBIN 11.3 gm/dL (14.0-18.0); LYMPHOCYTES 3.6 % (24.0-44.0); MCH 30.8 pg (26.0-34.0); MCV 93.2 fL (80.0-100.0); MONOCYTES 4.6 % (1.0-8.0); PLATELET COUNT 197 thou/uL (150-400); POLYS 91.5 % (36.0-66.0); RBC 3.67 mil/uL (4.50-6.00); RDW 14.4 % (10.5-14.5); WBC 15.7 thou/uL (4.0-11.0)
[2020-04-07] VITALS (25 sets, daily range): BP systolic 85–132; BP diastolic 50–74
--- NOTE | 2020-04-07 00:34 | NUR ---
ASSUMED CARE OF PATIENT AT 1900. SPOKE WITH DR BEDOYA REGARDING PATIENT STATUS. BLEED, LABS. WILL CONTINUE TO MONITOR. PRONING AT THIS TIME. TOLERATES WELL. NO S/S OF DISTRESS. STILL UNABLE TO FULLY TURN OFF SEDATION DUE TO SPASTIC COUGHING, TACHYPNEA AND TACHYCARDIA. WORKING TOWARDS POC GOALS.
[2020-04-07 04:05] LABS: BE(vivo) 12.7 mmol/L (-2 to +3); HCO3 39.2 mmol/L (22.0-26.0); PCO2 58.9 mmHg (35.0-45.0); PO2 141.1 mmHg (80.0-100.0); pH 7.441 (7.360-7.450); sO2 98.8 % (92.0-98.0)
--- NOTE | 2020-04-07 10:24 | NUR ---
If daily proning needed and enteral feedings still needed, recommend a total daily volume of vital high protein of 1 liter bottle in a 24 hr period
[2020-04-07 14:05] LABS: HEMOGLOBIN 12.7 gm/dL (14.0-18.0); MCHC 33.5 g/dL (28.0-37.0); MCV 92.6 fL (80.0-100.0); RBC 4.1 mil/uL (4.50-6.00); RDW 13.8 % (10.5-14.5); WBC 21.5 thou/uL (4.0-11.0)
[2020-04-07 14:17] LABS: ALBUMIN 2.1 g/dL (3.4-5.0); CALCIUM 8.4 mg/dL (8.5-10.1); CREATININE 0.7 mg/dL (0.7-1.3); MAGNESIUM 2.2 mg/dL (1.8-2.4); POTASSIUM 4.8 mmol/L (3.5-5.1); TOTAL BILIRUBIN 0.9 mg/dL (0.2-1.0); TOTAL PROTEIN 6.5 g/dL (6.4-8.2)
--- NOTE | 2020-04-07 20:57 | NUR ---
NOT MAKING PROGRESS TOWARD ANY GOALS.--VW
--- NOTE | 2020-04-07 22:29 | NUR ---
ASSUMED CARE OF PATIENT AT 1900. PROPFOL INCREASED TO MAX. PATIENT STILL OVERBREATHING AND COUGHING THE VENT. DR BEDOYA NOTIFIED, ORDER FOR VERSED GTT OBTAINED. WILL TITRATE. SISTER OF PATIENT CALLED THIS RN. UPDATE GIVEN. WAS ALSO ABLE TO FACETIME. PLANS TO FACETIME DAUGHTER LATER THIS EVENING. NOT PROGRESSING TOWARDS POC GOALS.
[2020-04-08] VITALS (20 sets, daily range): BP systolic 90–119; BP diastolic 52–75
[2020-04-08 05:57] LABS: HEMATOCRIT 34.6 % (42.0-52.0); HEMOGLOBIN 11.3 gm/dL (14.0-18.0); MCH 30.7 pg (26.0-34.0); MCHC 32.6 g/dL (28.0-37.0); MCV 94.3 fL (80.0-100.0); RBC 3.67 mil/uL (4.50-6.00); RDW 14.5 % (10.5-14.5); WBC 14.7 thou/uL (4.0-11.0)
[2020-04-08 06:13] LABS: ANION GAP < 0 mmol/L (7-16); BUN 36 mg/dL (7-18); CALCIUM 8.5 mg/dL (8.5-10.1); CHLORIDE 102 mmol/L (98-107); CO2 43 mmol/L (21-32); CREATININE 0.6 mg/dL (0.7-1.3); GLUCOSE 224 mg/dL (74-106); MAGNESIUM 2.4 mg/dL (1.8-2.4); POTASSIUM 4.6 mmol/L (3.5-5.1); SODIUM 142 mmol/L (136-145)
[2020-04-08 10:56] LABS: INR 1.2; PROTIME 11.8 Seconds (9.3-11.4)
--- NOTE | 2020-04-08 16:46 | NUR ---
PT SEDATED ON VENT. FIO2 TITRATED DOWN TO 65% BY RT. PLAN TO PRONE TODAY. SEDATION TITRATED DOWN BY RN TO DETERMINE NEUROLOGIC STATUS. ADEQUATE UOP. FMS IN PLACE. TOLERATING TUBE FEED WITH RESIDUALS WNL. AFEBRILE. ATTEMPTED TO CALL FAMILY WITH UPDATE. PT WAS EDUCATED AND UPDATED ON CONDITION AND POC. SLOWLY PROGRESSING TOWARDS POC. WILL CONTINUE TO MONITOR.
[2020-04-09] VITALS (22 sets, daily range): BP systolic 94–118; BP diastolic 52–75
[2020-04-09 04:59] LABS: ABSOLUTE NEUTROPHILS 18.6 thou/uL (1.4-8.2); BASOPHILS 0.4 % (0.0-2.0); EOSINOPHILS 0.4 % (0.0-3.0); HEMATOCRIT 34.9 % (42.0-52.0); LYMPHOCYTES 2.9 % (24.0-44.0); MCH 32.5 pg (26.0-34.0); MCHC 34.5 g/dL (28.0-37.0); MCV 94.2 fL (80.0-100.0); MONOCYTES 2.3 % (1.0-8.0); PLATELET COUNT 210 thou/uL (150-400); RDW 14.1 % (10.5-14.5); WBC 19.8 thou/uL (4.0-11.0)
[2020-04-09 05:36] LABS: ALBUMIN 1.8 g/dL (3.4-5.0); ANION GAP < 0 mmol/L (7-16); BUN 33 mg/dL (7-18); CHLORIDE 100 mmol/L (98-107); CO2 43 mmol/L (21-32); CREATININE 0.6 mg/dL (0.7-1.3); GLUCOSE 125 mg/dL (74-106); POTASSIUM 4.2 mmol/L (3.5-5.1); SODIUM 141 mmol/L (136-145); TOTAL BILIRUBIN 0.8 mg/dL (0.2-1.0)
[2020-04-09 05:38] LABS: BE(vivo) 14.8 mmol/L (-2 to +3); HCO3 44.1 mmol/L (22.0-26.0); PCO2 80.4 mmHg (35.0-45.0); PO2 194.9 mmHg (80.0-100.0); pH 7.357 (7.360-7.450); sO2 99.2 % (92.0-98.0)
[2020-04-09 06:11] LABS: SGOT 31 U/L (15-37); SGPT 48 U/L (30-65)
--- NOTE | 2020-04-09 07:28 | NUR ---
0700-RECEIVED REPORT FROM DEANDRE ROBLERO. ASSUMED PATIENT CARE. 07-SAP FUNCTIONAL ANALYST NOTIFIED THIS NURSE THAT PATIENT IS GOING ON CPAP TRIAL AT THIS TIME.
[2020-04-09 09:14] LABS: BE(vivo) 12.8 mmol/L (-2 to +3); PCO2 50.3 mmHg (35.0-45.0); pH 7.496 (7.360-7.450); sO2 83.5 % (92.0-98.0)
[2020-04-09 09:15] LABS: PO2 44.5 mmHg (80.0-100.0)
[2020-04-10] VITALS (28 sets, daily range): BP systolic 86–121; BP diastolic 53–76
[2020-04-10 05:01] LABS: BE(vivo) 8.5 mmol/L (-2 to +3); HCO3 34.4 mmol/L (22.0-26.0); PCO2 53.2 mmHg (35.0-45.0); PO2 66.9 mmHg (80.0-100.0); pH 7.428 (7.360-7.450); sO2 93.4 % (92.0-98.0)
[2020-04-10 07:02] LABS: HEMATOCRIT 35.4 % (42.0-52.0); HEMOGLOBIN 11.6 gm/dL (14.0-18.0); MCH 30.7 pg (26.0-34.0); MCHC 32.8 g/dL (28.0-37.0); MCV 93.8 fL (80.0-100.0); PLATELET COUNT 228 thou/uL (150-400); RBC 3.77 mil/uL (4.50-6.00); RDW 14.6 % (10.5-14.5); WBC 16.9 thou/uL (4.0-11.0)
--- NOTE | 2020-04-10 07:17 | NUR ---
RECEIVED PATIENT REPORT FROM RADHAMES ROBLERO. ASSUMED PATIENT CARE.
[2020-04-10 07:27] LABS: INR 1.2
[2020-04-10 07:35] LABS: D-DIMER 9.73 ug/mLFEU (0.19-0.50)
--- NOTE | 2020-04-10 07:36 | NUR ---
[facility] CARE AT 1900. VSS. SEDATION VACATION FOR ABOUT 15 MINUTES. PT DOESNT FOLOW COMMANDS, VERBAL STIMULI OR PAIN STIMULI. PT HOWEVER HAS POSIIVE COUGH AND GAG. OTHER ASSESSMENTS ARE CHARTED. PT APPEARS STABLE, WILL CONTINUE TO CLOSELY MONITOR.
[2020-04-10 07:46] LABS: ANION GAP < 0 mmol/L (7-16); BUN 39 mg/dL (7-18); CALCIUM 8.7 mg/dL (8.5-10.1); CHLORIDE 100 mmol/L (98-107); CO2 43 mmol/L (21-32); CREATININE 0.6 mg/dL (0.7-1.3); GLUCOSE 243 mg/dL (74-106); POTASSIUM 4.6 mmol/L (3.5-5.1); SGOT 25 U/L (15-37); SGPT 45 U/L (30-65); SODIUM 140 mmol/L (136-145); TOTAL BILIRUBIN 0.5 mg/dL (0.2-1.0); TOTAL PROTEIN 6.5 g/dL (6.4-8.2); TROPONIN-I <0.06 ng/mL (<0.06)
--- NOTE | 2020-04-10 13:34 | NUR ---
chart review. pt remains on intubation, prone vent at times, and has tube feeding for nutritional support. not anticpated for dc over weekend. cm visited with daughter via phone to see how she was doing. " i have another week of staying home then i can go back to work. i am still have fever sometimes and very tired. would like to facetime again with my dad again. [facility] the nurses at [facility] and so are the doctor. spoke with last weekend and i would like to speak with doctors again and found out when going to do trach because he will have to go to other place that you talked about"/[facility]ah. re-education on [facility] " oh and he will not go to [facility] my grandma his mom there. [facility]st choice would be [facility] and 2nd choice would be [facility] when we are ready to make those decision after he gets his trach"/daughter transportation.
[2020-04-10 14:21] LABS: ABSOLUTE NEUTROPHILS 15.7 thou/uL (1.4-8.2); ANISOCYTOSIS 1+; HYPOCHROMASIA SLIGHT; METAMYELOCYTES 1 %; POLYCHROMASIA OCCASIONAL
--- NOTE | 2020-04-10 19:00 | NUR ---
PATIENT CONTIUES TO HAVE SHORT EPISODES OF COUGHING AND DESAT'S INTO THE 80'S REBOUNDS IN APPROXIMATLY 5 MINUTES TO THE LOWER 90'S. REMAINS SEDATED ON FENTANYL, VERSED AND PROPOFOL. WILL CONTINUE TO MONITOR.
--- NOTE | 2020-04-10 19:53 | NUR ---
DAUGHTER, SALMA, CALLED AND UPDATED TO PATIENT STATUS AND UPCOMING PLAN FOR TRACH AND FEEDING TUBE. QUESTIONS ANSWERED AND REASSURANCE GIVEN.
[2020-04-11] VITALS (23 sets, daily range): BP systolic 89–119; BP diastolic 54–76
[2020-04-11 04:23] LABS: BE(vivo) 13.2 mmol/L (-2 to +3); PCO2 83.5 mmHg (35.0-45.0); PO2 91.3 mmHg (80.0-100.0)
[2020-04-11 04:58] LABS: ABSOLUTE NEUTROPHILS 15.7 thou/uL (1.4-8.2); BASOPHILS 2.3 % (0.0-2.0); EOSINOPHILS 0.2 % (0.0-3.0); HEMATOCRIT 33.7 % (42.0-52.0); HEMOGLOBIN 11.8 gm/dL (14.0-18.0); LYMPHOCYTES 3.8 % (24.0-44.0); MCV 94.4 fL (80.0-100.0); MONOCYTES 2.3 % (1.0-8.0); PLATELET COUNT 231 thou/uL (150-400); POLYS 91.4 % (36.0-66.0); RBC 3.57 mil/uL (4.50-6.00); RDW 14.3 % (10.5-14.5); WBC 17.2 thou/uL (4.0-11.0)
--- NOTE | 2020-04-11 20:34 | NUR ---
PT INTUBATED AND SEDATED. DAY 20 ON VENT. UNABLE TO TITRATE FIO2. AFEBRILE. ADEQUATE UOP. FMS IN PLACE. PROPOFL WAS TITRATED OFF TO DETERMINE NEUROLOGIC BASELINE. PT HAD NO NEUROLOGIC CHANGES DURING SHIFT. TOLERATING TUBE FEED. PLAN IS TO TRACH/PEG ON MONDAY. PT NOT PROGRESSING TOWARDS POC. WILL CONTINUE TO MONITOR. PT AND FAMILY WERE UPDATED AND EDUCATED ON PT CONDITION AND POC.
[2020-04-12] VITALS (22 sets, daily range): BP systolic 95–132; BP diastolic 55–75
--- NOTE | 2020-04-12 07:22 | NUR ---
ASSESSMENT: PT REMAIN MODERATELY SEDATED. VSS, AFBRILE. VENT SETTINGS UNCHANGED DURIN THIS SHIFT. FIO2 70% PEEP. POSSIBLE PEG/TRACH ON MONDAY. COVID RETEST PENDING. SR PER MONITOR. POOR PROGRESS TOWARDS DC GOALS, WILL CONTINUE TO MONITOR.
--- NOTE | 2020-04-12 19:07 | NUR ---
PT INTUBATED AND SEDATED. UNABLE TO TITRATE FIO2. AFEBRILE. TOLERATING TUBE FEED. ADEQUATE UOP. FMS IN PLACE. DOES NOT FOLLOW COMMANDS. POSITIVE COUGH/GAG/PERRL. PLAN IS TO TRACH/PEG TOMORROW. PT HAS BEEN UPDATED AND EDUCATED ON CONDITION AND POC. SLOWLY PROGRESSING TOWARDS POC. WILL CONTINUE TO MONITOR.
[2020-04-13] VITALS (29 sets, daily range): BP systolic 83–130; BP diastolic 49–80
[2020-04-13 03:05] LABS: GLYCOHEMOGLOBIN (HGB A1C) 6.8 % (4.8-5.6)
[2020-04-13 06:29] LABS: HEMATOCRIT 37.1 % (42.0-52.0); HEMOGLOBIN 12.2 gm/dL (14.0-18.0); MCH 30.9 pg (26.0-34.0); MCHC 32.9 g/dL (28.0-37.0); PLATELET COUNT 289 thou/uL (150-400); RBC 3.94 mil/uL (4.50-6.00); RDW 14.5 % (10.5-14.5); WBC 17.5 thou/uL (4.0-11.0)
[2020-04-13 06:42] LABS: ALBUMIN 2.2 g/dL (3.4-5.0); ANION GAP < 0 mmol/L (7-16); BUN 45 mg/dL (7-18); CALCIUM 8.5 mg/dL (8.5-10.1); CHLORIDE 102 mmol/L (98-107); CO2 44 mmol/L (21-32); CREATININE 0.5 mg/dL (0.7-1.3); GLUCOSE 168 mg/dL (74-106); POTASSIUM 4.7 mmol/L (3.5-5.1); SGOT 26 U/L (15-37); SGPT 43 U/L (30-65); SODIUM 143 mmol/L (136-145); TOTAL BILIRUBIN 0.6 mg/dL (0.2-1.0); TOTAL PROTEIN 6.7 g/dL (6.4-8.2)
--- NOTE | 2020-04-13 10:42 | NUR ---
chart review. pt remains intubated, prone, with tube feeding nutritional support. per notes possible trach and peg? will cont following as needed for dc needs. will need to look into [facility] when pt gets trach and peg. cm spoke with daughter last week rt [facility]. to discuss with daughter.
[2020-04-13 12:16] LABS: ABSOLUTE NEUTROPHILS 15.8 thou/uL (1.4-8.2)
[2020-04-13 12:19] LABS: ANISOCYTOSIS SLIGHT; LARGE PLATELETS OCCASIONAL; POIKILOCYTOSIS SLIGHT
--- NOTE | 2020-04-13 15:23 | NUR ---
PT INTUBATED AND SEDATED. UNABLE TO TITRATED FIO2. SEDATION VACATION PERFORMED, PT DOES NOT FOLLOW COMMANDS/TRACK. WILL OPEN EYES. REPORT WAS GIVEN TO ME THAT THE PT WAS GOING TO GET A TRACH/PEG TODAY. HOWEVER, I JUST GOT OFF THE PHONE WITH DR NICOLE, HE SAID THAT THE PROCEDURE WILL NOT BE COMPLETED UNTIL DR ASH IS BACK IN [place] NEXT MONDAY. I WILL CALL THE PTS DAUGHTER TODAY TO RELAY THIS INFORMATION. PT HAS ADEQATE UOP. FMS IN PLACE WITH SMALL AMOUNT OF DRAINAGE. PT HAS LOW GRADE FEVER.
[2020-04-14] VITALS (22 sets, daily range): BP systolic 91–122; BP diastolic 59–79
--- NOTE | 2020-04-14 08:49 | NUR ---
PT SEDATED, IN RESTRAINTS. DOES NOT FOLLOW COMMANDS, BUT PROPOFOL STARTED FOR VENT MANAGEMENT SEDATION PT CONSTANT DRY COUGH, 02SAT IMPROVED WITH SEDATION. AFEBRILE THIS AM, DIAPHORETIC FEVER BROKE. CONT IN ENHANCED PRECAUTION. [facility]
--- NOTE | 2020-04-14 19:13 | NUR ---
ASSUMED CARE PT SHIFT CHANGE. ASSESSMENTS CHARTED.MEDS GIVEN PER NOV. PT SEDATED, INTUBATED. DOES NOT FOLLOW COMMNANDS, RESPONDS TO PAINFUL STIMULI. VENT SETTINGS REMAIN SAME EXCEPT FOR FIO2 DOWN FROM 80%-70%. PT REMAINS ON FENTANYL, VERSED, PROPOFOL GTT. TITRATED CHARTED. TUBE FEEDS REMAIN AT 85MLHR, PT TOLERATING WELL WITH LOW RESIDUALS. DAUGHTER UPDATED ON POC. PT TO HAVE TRACH AND PEG PLACEMENT TOMORROW. VERBAL CONSENT RECEIVED FROM DAUGHTER. VSSR Jak ON TELE MONITOR. NO S/SX RESP DISTRESS NOTED. CONTINUING TO MONITOR CLOSELY. WILL PASS ON REPORT TO NOC RN.
[2020-04-15] VITALS (68 sets, daily range): BP systolic 83–122; BP diastolic 51–77
[2020-04-15 03:51] LABS: BE(vivo) 16.4 mmol/L (-2 to +3); HCO3 43.3 mmol/L (22.0-26.0); PCO2 62.8 mmHg (35.0-45.0); PO2 92.3 mmHg (80.0-100.0); pH 7.456 (7.360-7.450); sO2 97.2 % (92.0-98.0)
[2020-04-15 07:53] LABS: HEMATOCRIT 36.8 % (42.0-52.0); MCH 30.6 pg (26.0-34.0); MCHC 32.7 g/dL (28.0-37.0); MCV 93.8 fL (80.0-100.0); PLATELET COUNT 301 thou/uL (150-400); RBC 3.92 mil/uL (4.50-6.00); RDW 14.1 % (10.5-14.5); WBC 16.9 thou/uL (4.0-11.0)
--- NOTE | 2020-04-15 10:30 | NUR ---
Pt sedated as ordered. persistant cough when awake, does not follow commands. will have a trach/pe today. Permit signed. tube feeding on hold
[2020-04-15 11:00] LABS: ABSOLUTE NEUTROPHILS 15.9 thou/uL (1.4-8.2); ANISOCYTOSIS SLIGHT
[2020-04-15 11:01] LABS: LARGE PLATELETS OCCASIONAL; POIKILOCYTOSIS SLIGHT
--- NOTE | 2020-04-15 15:27 | NUR ---
Case discussed with the care. Trach and peg scheduled for today. Will need to intiate [facility] referrals to [facility] soon. Dc materials planner to fax facesheet to check ins network and benefits. Pt's dtr indicated that they did not want a referral going to [facility] as her gmother had there.
--- NOTE | 2020-04-15 16:20 | NUR ---
To OR for trach and peg on bed on vent. MD and RT with pt on monitor. Consent signed.
--- NOTE | 2020-04-15 16:21 | NUR ---
FAXED FACE SHEET TO [facility] RECEIVED CONFIRMATION AND LEFT MSG WITH ABIEL IN ADM TO SEE IF THEY ARE IN NETWORK WITH PT'S INSURANCE AND ALSO FAXED FACE SHEET TO [facility] SPOKE WITH ARYAN IN ADM SHE IS CHECKING PT'S INSURANCE TO SEE IF IN NETWORK. DP TO FOLLOW.
--- NOTE | 2020-04-15 18:45 | NUR ---
pt back from OR. 7.5 bivona trach intact, no bleeding noted. F102 100% AC 18 TV 450 peep 8 Gastric tube intact. Resedated on Diprivan, versed and fentanyl.
[2020-04-16] VITALS (34 sets, daily range): BP systolic 80–147; BP diastolic 51–80
--- NOTE | 2020-04-16 05:00 | NUR ---
ASSESSMENT: PT HAD A PEG/TRACH TODAY PER DR. GUTHRIE. TRACH IS NOTED WITH MINIMAL AMTS OF DRIED BLOOD AND SCANT AMTS OF BLEEDING AT THE SITE. PEG TUBE IS INTACT AND NO BLEEDING NOTED. PEG TUBE WAS NOT USED THIS SHIFT, PENDING AN OK TO USE ORDER. SR-SB ON THE MONITOR. HR IN THE MID TO LOW 50'S. BLOOD PRESSURE LOW 88-96/50'S. PNEUMATIC TUBE REPAIRER ARYAN MORENO WAS NOTIFIED. ORDERS GIVEN TO GIVE ONE TIME ALBUMIN AND ONE 500 ML BOLUS OF NS. NO IMPROVEMENT OF BP,; MAP 64-67 PER CUFF. PHARMACY DID NOT SEND A BLUE NARC SHEET FOR SOME OF THE GTTS. THERE WASN'T A SHEET FOR A VERSED DURING THIS SHIFT. PT'S DAUGHTER CALLED AND FACE TIMED WITH HIM. CAMPOS PATENT WITH URINE 550CC THIS SHIFT. FECAL MANAGEMENT SYSTEM INTACT WITH SEMI-LIQUID STOOL PRESENT. SB PER MONITOR MOST OF SHIFT. CONTINUAL, SLOW PROGRESS TOWARDS DC GOALS, WILL CONTINUE TO MONITOR.
--- NOTE | 2020-04-16 10:34 | NUR ---
Nutrition: pt S/P trach/PEG. When tube feeds resume, rec Vital HP to reach 70 mL/hr if no longer proning pt. REC 100 mL H20 flush QID to be resumed also.
--- NOTE | 2020-04-16 11:04 | NUR ---
FAXED REFERRAL TO [facility] SPOKE WITH ARYAN IN ADM SHE RECEIVED REFERRAL AND WILL REVIEW. FAXED REFERRAL TO [facility] SPOKE WITH ABIEL IN ADM SHE RECEIVED REFERRAL AND WILL REVIEW. DP TO FOLLOW.
--- NOTE | 2020-04-16 13:14 | NUR ---
both [facility] and [facility] at [facility] with [employer]. will need auth. [facility] is going to reach out to pt daughter . cm sent message to md to see when pt might be possible ready to dc to [facility]. will cont following as needed for dc needs.
--- NOTE | 2020-04-16 14:14 | NUR ---
SPOKE WITH ARYAN IN ADM AT [facility] AND THEY CAN ACCEPT PT AND WILL SUBMIT FOR AUTH FOR POSS DC MONDAY/MONDAY OF NEXT WEEK, DP TO FOLLOW.
--- NOTE | 2020-04-16 17:55 | NUR ---
PT SEDATED ON VENT. 7.[address] WITH OBTURATOR AT HOB. VENT SETTINGS HAVE BEEN TITRATED, PT TOLERATING WELL. AFEBRILE. FMS IN PLACE. ADEQUATE UOP (VERY DARK). PT TOLERATED PRESSURE SUPPORT SETTING ON VENT FROM [phone]. SURGERY CAME BY TO CHECK ON PT, GAVE PERMISSION TO USE PEG TUBE. WILL START TUBE FEED AGAIN AT LOWER THAN GOAL RATE. PT DAUGHTER HAS BEEN UPDATED AND EDUCATED ON PT CONDITION AND POC. PT SLOWLY PROGRESSING TOWARDS POC. WILL CONTINUE TO MONITOR.
[2020-04-17] VITALS (24 sets, daily range): BP systolic 94–128; BP diastolic 56–79
--- NOTE | 2020-04-17 06:47 | NUR ---
PT CONTINUES TO BE SEDATED ON A VENT. HAS TRACH. TV 450, RATE 18, PEEP 8 fIO2 55%. PT HAD OCC EPISODES OF DESATING REQUIRING O2 SUCTIONING WELL TRACH SUCTIONING. HAS A CAMPOS CATHETER IN PLACE DRAINING W/O ANY DIFFICULTIES. PT ALSO HAS A FECAL MANAGEMENT SYSTEM. SEDATED VIA PROPOFOL AT 20 VERSED AT 6 AND FENTANYL AT 75 MCG/HR. PT ON CONTINOUS TF VITAL HP AT 85CC/HR WHICH IS AT GOAL. SINUS RYTHM THRO'OUT THIS SHIFT.
--- NOTE | 2020-04-17 13:26 | NUR ---
chart review. [facility] and [facility] have been updated per cm team that pt will be ready possible monday for [facility]. cm sent message to hospitalist to see if he has spoke with daughter yet and if still need transfer sent. not anticipated dc over weekend. will cont following as needed for dc needs.
--- NOTE | 2020-04-17 16:26 | NUR ---
PT INTUBATED AND SEDATED. FIO2 WAS INCREASED BECAUSE PT DESATS DUE TO PERSISTANT COUGH. LOW GRADE FEVER TODAY. ADEQUATE UOP. TRACH/PEG FUNCTIONING WELL. TOLERATING TUBE FEED. ATTEMPTED TO CALL DAUGHTER TODAY, NO ANSWER. PT HAS BEEN EDUCATED AND UPDATED ON CONDITION AND POC. WILL CONTINUE TO MONITOR.
[2020-04-18] VITALS (22 sets, daily range): BP systolic 86–112; BP diastolic 55–75
[2020-04-18 05:07] LABS: ABSOLUTE NEUTROPHILS 14.2 thou/uL (1.4-8.2); BASOPHILS 0.8 % (0.0-2.0); EOSINOPHILS 2.5 % (0.0-3.0); HEMATOCRIT 35.1 % (42.0-52.0); HEMOGLOBIN 11.5 gm/dL (14.0-18.0); LYMPHOCYTES 5.9 % (24.0-44.0); MCH 30.8 pg (26.0-34.0); MCHC 32.6 g/dL (28.0-37.0); MCV 94.3 fL (80.0-100.0); MONOCYTES 1.4 % (1.0-8.0); PLATELET COUNT 314 thou/uL (150-400); POLYS 89.4 % (36.0-66.0); RBC 3.72 mil/uL (4.50-6.00); RDW 14.7 % (10.5-14.5); WBC 15.9 thou/uL (4.0-11.0)
[2020-04-18 05:17] LABS: BE(vivo) 5.5 mmol/L (-2 to +3); HCO3 31.3 mmol/L (22.0-26.0); PCO2 51.1 mmHg (35.0-45.0); PO2 78.2 mmHg (80.0-100.0); pH 7.405 (7.360-7.450); sO2 95.5 % (92.0-98.0)
[2020-04-18 05:26] LABS: ALBUMIN 2.2 g/dL (3.4-5.0); CALCIUM 8.2 mg/dL (8.5-10.1); CREATININE 0.5 mg/dL (0.7-1.3); POTASSIUM 4.1 mmol/L (3.5-5.1); TOTAL BILIRUBIN 1.4 mg/dL (0.2-1.0); TOTAL PROTEIN 6.1 g/dL (6.4-8.2)
--- NOTE | 2020-04-18 06:55 | NUR ---
PT CONTINUED TO BE SEDATED WITH TRACH IN PLACE. VERSED @4, FENTANYL @75 AT THIS TIME. SOFT BP. VENT SETTINGS AT THIS TIME RATE 18, VT 450, PEEP 10, FiO 60%. HAS A CAMPOS CATHETER AND FECAL MANAGEMENT SYSTEM IN PLACE. TURNED AND REPOSITIONS. CONTINOUS TF VITAL HP @60. ACCHU CHECKS Q6H. SR/SINUS TACH ON THE MONITOR OVERNIGHT, WITH OCC DESATING. PT DAUGHTER CALLED OVERNIGHT AND UPDATED ON THE CONDITION OF THE PT.
[2020-04-18 11:23] LABS: URINE BLOOD 3+ (Negative); URINE CLARITY CLEAR; URINE COLOR YELLOW; URINE GLUCOSE-RANDOM* TRACE (Negative); URINE KETONES NEGATIVE (Negative); URINE LEUKOCYTES-REFLEX NEGATIVE (Negative); URINE NITRITE-REFLEX NEGATIVE (Negative); URINE PROTEIN (DIPSTICK) 2+ (Negative); URINE SPECIFIC GRAVITY >= 1.030 (1.005-1.035); URINE UROBILINOGEN >= 8.0 E.U./dl (0.2-1.0)
[2020-04-18 11:24] LABS: ICTOTEST (BILI CONFIRMATORY) Negative (Negative); URINE BILIRUBIN NEGATIVE (Negative)
[2020-04-18 11:39] LABS: BACTERIA-REFLEX 1-9 Few /HPF (None Seen); CASTS None Seen /LPF (None Seen); CRYSTALS None Seen /LPF (None Seen); SQUAMOUS 0-3 Few /LPF (0-3); URINE WBC-REFLEX 0-5 Rare /HPF (0-5); YEAST-REFLEX Present (None Seen)
[2020-04-19] VITALS (17 sets, daily range): BP systolic 82–107; BP diastolic 49–63
[2020-04-19 05:14] LABS: BE(vivo) 7.1 mmol/L (-2 to +3); PCO2 60.1 mmHg (35.0-45.0); PO2 100.2 mmHg (80.0-100.0); pH 7.371 (7.360-7.450); sO2 97.3 % (92.0-98.0)
[2020-04-19 06:04] LABS: HEMATOCRIT 33.5 % (42.0-52.0); MCH 31.1 pg (26.0-34.0); MCHC 32.8 g/dL (28.0-37.0); MCV 94.7 fL (80.0-100.0); PLATELET COUNT 321 thou/uL (150-400); RBC 3.54 mil/uL (4.50-6.00); RDW 15.1 % (10.5-14.5); WBC 14.1 thou/uL (4.0-11.0)
[2020-04-19 06:36] LABS: ALBUMIN 2.1 g/dL (3.4-5.0); CALCIUM 8.4 mg/dL (8.5-10.1); CREATININE 0.4 mg/dL (0.7-1.3); TOTAL BILIRUBIN 0.7 mg/dL (0.2-1.0); TOTAL PROTEIN 6.1 g/dL (6.4-8.2)
[2020-04-19 08:51] LABS: ABSOLUTE NEUTROPHILS 12.8 thou/uL (1.4-8.2); PLATELET ESTIMATE NORMAL
--- NOTE | 2020-04-19 11:52 | O ---
[facility] [place] [address] OPERATIVE REPORT Name: RADHA KEITH Room #: 241-P [facility] M.R.#: [id number] Admission: 03/22/20 Attend Phys: Todd Castro Discharge: Date of : 60 Report #: [id number] THIS REPORT FOR: cc: [facility] physician unknown [facility] physician unknown Juanjo Campoverde MD ~ CC: YAEL Castro DATE OF SERVICE: 04/15/2020 PREOPERATIVE DIAGNOSES: 1. Respiratory failure. 2. COVID pneumonia. 3. Protein-calorie malnutrition, severe. POSTOPERATIVE DIAGNOSES: 1. Respiratory failure. 2. COVID pneumonia. 3. Protein-calorie malnutrition, severe. OPERATION: 1. Tracheostomy. 2. Laparoscopic gastrostomy. SURGEON: Juanjo Campoverde MD. ANESTHESIA: General. ESTIMATED BLOOD LOSS: Minimal. SPECIMEN: None. DESCRIPTION OF PROCEDURE: After informed consent was obtained from his daughter, the patient was brought to the operating room and placed supine. SCDs were placed and working, preoperative antibiotics were administered, general anesthesia was induced. The neck was prepped and draped in the usual sterile fashion with just a slight extension of the patient's neck. A 3 cm incision was made 1 cm below the thyroid cartilage. Cautery dissection was made down to the platysma, which was incised. The strap muscles were identified in the midline and . The trachea was identified. A tracheal hook was used to retract the trachea superiorly. A window was made between the second and third rings. This was done with a 15 blade to cut out a small piece of the trachea. The ET tube was then pulled back. I inserted a 7-1/2 Bivona tracheostomy. The balloon was inflated. It inflated very well. [facility] [address] [place] [address] OPERATIVE REPORT Name: RADHA KEITH Room #: 241-P [facility]#: [id number] Admission: 03/22/20 Attend Phys: Todd Castro Discharge: Date of : 60 Report #: [id number] It was then connected immediately to the ventilator. The patient's oxygen saturations remained 100%, the entire time. The tidal volumes were good and he had good oxygen saturation. The skin was then closed with a 3-0 Monocryl suture. The tracheostomy was secured to the skin with a 2-0 nylon on each side of the tracheostomy. Sterile dressings were applied. The patient was then reprepped and draped. The abdomen was prepped and draped in the usual sterile fashion. A 1 mm incision was made in the left upper quadrant. Veress needle was inserted. Pneumoperitoneum was established. A left upper quadrant and right-sided 5 mm trocar was placed. The stomach was then grasped and retracted anteriorly. A 2 T-bars were placed in the left upper quadrant of the abdomen through the stomach. The T-bars were then brought up to the abdominal wall. A Seldinger needle was used to cannulate the stomach between the T-bars. Wire was placed. A dilator with a sheath was placed. A 12-Spanish gastrostomy tube was placed through the dilator as the sheath was peeled away. The balloon on the gastrostomy was inflated with 3 mL of normal saline. The T-bars were then fastened down, securing it to the anterior abdominal wall with absolutely no leakage. I then tested this by insufflating the stomach with a Raghav syringe. It insufflated very well and there was no evidence of leakage of air. The ports were removed under direct vision. The skin was closed with 4-0 Monocryl. Incisions were dressed with sterile gauze. COMPLICATIONS: None. DISPOSITION: The patient was taken to recovery in satisfactory condition. <ELECTRONICALLY SIGNED> By: Juanjo Campoverde MD 04/19/20 1152 [id number] Juanjo Campoverde MD /nt
[2020-04-20] VITALS (24 sets, daily range): BP systolic 88–113; BP diastolic 49–70
--- NOTE | 2020-04-20 07:52 | NUR ---
WILL OPEN EYES.SEDATED.DESATS WHEN COUGHING.TOLERATING TUBE FEEDING WELL AND ITS AT GOAL OF 85.DAUGHTER CALLED AND CHECK ON PATIENT.MONITOR SHOWS SR,ST.POC CONTINUED.
--- NOTE | 2020-04-20 11:00 | NUR ---
[facility] is seeking [facility] from [facility]. roger sent message to md to see if get auth if he stable for dc today. will cont following as needed for dc needs.
--- NOTE | 2020-04-20 11:46 | NUR ---
Nutrition: No further proning or need for propofol sedation. REC decrease tube feeds to run at 75 ml/hr x 24 hrs to meet needs. IVpiggybacks plus free water from tube feeds meet > 100% of fluid needs.
--- NOTE | 2020-04-20 20:49 | NUR ---
0700- ASSUMED PT CARE.
[2020-04-21] VITALS (24 sets, daily range): BP systolic 92–134; BP diastolic 52–76
--- NOTE | 2020-04-21 18:07 | NUR ---
ASSUMED CARE OF PT AT 0700. PT IS A GCS OF 5-8, CURRENTLY SEDATED ON FENT AND VERSED FOR VENT MANAGENT. HE IS MARISOL TUBE FEEDS. PT CONT TO HAVE COUGHING SPELL OFF OF SEDATION. PT NOTED TO HAVE SLIGHT FEVER. VSS. DAUGHTER GIVEN AN UPDATE TODAY. PT RESTING WITH EYES CLOSED AT THE MOMMENT.
[2020-04-22] VITALS (23 sets, daily range): BP systolic 82–130; BP diastolic 48–85
[2020-04-22 11:03] LABS: HEMATOCRIT 29.9 % (42.0-52.0); MCH 31.8 pg (26.0-34.0); MCHC 33.4 g/dL (28.0-37.0); MCV 95.3 fL (80.0-100.0); RBC 3.14 mil/uL (4.50-6.00); RDW 15.6 % (10.5-14.5); WBC 12.6 thou/uL (4.0-11.0)
[2020-04-22 11:09] LABS: CALCIUM 8.4 mg/dL (8.5-10.1); CREATININE 0.3 mg/dL (0.7-1.3); POTASSIUM 3.9 mmol/L (3.5-5.1)
[2020-04-23] VITALS (25 sets, daily range): BP systolic 87–118; BP diastolic 51–75
--- NOTE | 2020-04-23 06:00 | NUR ---
REMAINS INTUBATED AND SEDATED FENTANYL AND VERSED GTTS. LUNGS COARSE FOLLOWS NO COMMANDS SPOKE WITH PTS DAUGHTER. 750 CC UO THIS SHIFT. WILL CONT TO MONITOR
[2020-04-23 08:58] LABS: BUN 26 mg/dL (7-18); CALCIUM 8.2 mg/dL (8.5-10.1); CHLORIDE 103 mmol/L (98-107); CO2 44 mmol/L (21-32); CREATININE 0.3 mg/dL (0.7-1.3); GLUCOSE 161 mg/dL (74-106); POTASSIUM 3.7 mmol/L (3.5-5.1); SODIUM 146 mmol/L (136-145)
--- NOTE | 2020-04-23 11:08 | NUR ---
PATIENTS PEG TUBE NOTED TO BE CLOGGED WHILE ATTEMPTING TO ADMINISTER MEDS. PAGED DR. ASH TO UPDATE. AWAIT RETURN CALL.
--- NOTE | 2020-04-23 12:43 | NUR ---
SPOKE WITH DR. GARCIA ABOUT CLOGGED PEG TUBE, STATES HE WILL BE AROUND THIS AFTERNOON TO ASSES.
--- NOTE | 2020-04-23 22:08 | NUR ---
ASSUMED PT CRAE AT 1900. O2 SAT 86-87% CHANGED 02 SAT PROBE; O2 SAT CAME UP TO 95-96% AND HAS REMAINED THAT VALUE SINCE 2030. SEDATION VACATION AT 2022, FROM FENT AT 100, VERSED AT 6 AND PRECEDEX AT 1.4. SEDATION VACATION LASTED 30 MINUTES, PT OPENS EYES TO VOICE AND STERNAL RUB, FOLLOWS COMMANDS AND WILL SQUEEZ BILATERAL HANDS ALTHOUGH WEAK. FACIAL GRIMACE TO PAIN WITH ORAL SUCTION, POSITIVE COUGH AND GAG. PT TACHYPNEIC WITH RR 34-37 WHEN SEDATION OFF. FACETIME WITH FAMILY AT 2209. UPDATED EX MARIAH ON PT STATUS FROM ABOVE ASSESMENTS AND MOST RECENT VITAL SIGNS. SEDATION RESEARTED WITH VERSED AT 6, FENTANYL AT 50 AND PRECEDEX AT 1. AIR LEAK STILL PRESENT IN CHEST TUBE BUT ITS INTACT. PT APPEARS STABLE FOR NOW, WILL CONTINUE TO CLOSELY MONITOR.
[2020-04-24] VITALS (25 sets, daily range): BP systolic 78–125; BP diastolic 49–68
--- NOTE | 2020-04-24 02:08 | NUR ---
SEDATION VACATION FOR 10 MINUTES; PT DOESNT FOLLOW COMMANDS BUT HE OPENS EYES TO STERNAL RUB, FACIAL GRIMACES TO PAIN AND HAS POSITIVE COUGH AND GAG. PT ON 80% FIO2 UPON ASSUMPTION OF CARE. PT BEGAN TO DESAT AROUND 2300 WENT LOW 69% WITH RR OF 43. O2 INCRESED TO 100% AND WENT UP ON SEDATION AND SATS CAME BACK UP TO 100%. VERÓNICA BUNCH CALLED AT 01AM [facility] CALLED SCHEDULED FOR 0140 AND SHE WAS ABLE TO VIDEO CALL SANJEEV SAUCEDO.
[2020-04-24 05:45] LABS: ANION GAP < 0 mmol/L (7-16); BUN 18 mg/dL (7-18); CALCIUM 8.4 mg/dL (8.5-10.1); CHLORIDE 101 mmol/L (98-107); CO2 43 mmol/L (21-32); CREATININE 0.2 mg/dL (0.7-1.3); GLUCOSE 88 mg/dL (74-106); POTASSIUM 3.7 mmol/L (3.5-5.1); SODIUM 143 mmol/L (136-145)
--- NOTE | 2020-04-24 08:58 | NUR ---
THIS DICTAPHONE MECHANIC RECEIVED A CALL FROM THE PATIENT'S DAUGHTER WHEN I WAS OUT OF THE OFFICE. I CALLED HER BACK AT 0745 ON APRIL 24, 2020. WE DISCUSSED HER FATHER AND THE INFLUENCE HE HAS IN HER LIFE. I EXPAINED I GO BY HIS ROOM EVERY DAY I AM HERE AND PRAY FOR HIM . I EXPLAINED THAT I CAN NOT CAN ENTER HIS ROOM HOWEVER HE IS IN "COVID" ISOLATION IN ICU.
--- NOTE | 2020-04-24 11:08 | NUR ---
ASSESSMENTS AND INTERVENTIONS DOCCUMENTED. DAUGHTER CALLING THIS MORNING. PLANS FOR ZOOM MEETING WITH FATHER.PATIENT RESTING, NO MAJOR EVENTS. RN PLAYING MESSAGES FROM DAUGHTER AND PATIENT MUSIC. GEN SURG ROUNGING ON PATIENT. NO NEW ORDERS.
--- NOTE | 2020-04-24 14:02 | NUR ---
chart review. amanda, gillian with vent support. spoke with daughter elijah, nothing to pass on, waiting to see if i can come and see him. just got to take it day by day, he is strong"/elijah. no anticipated dc over weekend will cont following as needed for dc needs.
[2020-04-25] VITALS (47 sets, daily range): BP systolic 85–132; BP diastolic 49–95
--- NOTE | 2020-04-25 04:25 | NUR ---
ASSUMED PT CARE AROUND 1900. PT IS SEDATED WITH FENTANYL AND VERSED FOR VENT MANAGEMENT. DURING SEDATION VACATION, PT DID NOT FOLLOW COMMANDS. HE DID GRIMACE WITH PAINFUL STIMULI. TITRATED VERSED GTT DOWN SLIGHTLY. PT DID NOT TOLERATED DECREASING FENTANYL GTT, HE BEGAN HAVING COUGHING FITS. ORAL CARE PROVIDED. REPOSITIONED FREQUENTLY TO PREVENT SKIN BREAKDOWN. TF VIA PEG. PT IS TOLERATING TF WELL, WITH NO RESIDUALS. INCREASED TF TO GOAL RATE. AFEBRILE. NOT PROGRESSING WELL TOWARD POC GOALS. WILL CONTINUE TO MONITOR FURTHER.
[2020-04-25 07:00] LABS: HEMATOCRIT 27.1 % (42.0-52.0); MCH 31.5 pg (26.0-34.0); MCHC 33.3 g/dL (28.0-37.0); MCV 94.6 fL (80.0-100.0); RBC 2.86 mil/uL (4.50-6.00); WBC 11.1 thou/uL (4.0-11.0)
[2020-04-25 07:10] LABS: ANION GAP < 0 mmol/L (7-16); BUN 18 mg/dL (7-18); CALCIUM 8.6 mg/dL (8.5-10.1); CHLORIDE 99 mmol/L (98-107); CO2 44 mmol/L (21-32); CREATININE 0.3 mg/dL (0.7-1.3); GLUCOSE 113 mg/dL (74-106); POTASSIUM 3.9 mmol/L (3.5-5.1); SODIUM 140 mmol/L (136-145)
--- NOTE | 2020-04-25 18:45 | NUR ---
TALKE TO [facility] TODAY AND GAVE UPDATE. CONTINUE Q2 HOUR TURNS AND TUBE FEEDINGS. RAMINS ON MECHANICAL VETILATION WITH CAMPOS AND RECTAL TUBE IN PLACE. WILL CONTINUE TO ASSESS.
--- NOTE | 2020-04-25 23:04 | NUR ---
2019 - THIS RN SPOKE WITH PT/S DTR (SALMA) ON THE PHONE. BRIEF UPDATED PROVIDED. 2139 - SPOKE WITH PT'S SISTER WHO PROVIDED PRIVACY CODE. UPDATED HER ON PT STATUS AND POC. ALL QUESTIONS ANSWERED. PT REMAINS SEDATED WITH FENTANYL AND VERSED FOR VENT MANAGMENT. DID NOT PERFORM SEDATION VACATION, TURNING OFF OR DECREASING SEDATION TRIGGERS SIGNIFICANT COUGH REFLEX. PT DESATS INTO MID-UPPER 80S WITH COUGHING. NOTIFIED HIS SISTER OF THIS DELICATE BALANCE BETWEEN SEDATAION AND VENT MANAGEMENT. HE IS REQUIRING FIO2 90% ON VENT TO MAINTAIN O2 SATS >90%. AFEBRILE. BP STABLE. TF VIA PEG TUBE; TF AT GOAL RATE OF 75ML/HR. NO RESIDUAL SO FAR. ADEQUATE URINE OUTPUT VIA CAMPOS. NOT PROGRESSING WELL TOWARD POC GOALS. WILL CONTINUE TO MONITOR.
[2020-04-26] VITALS (37 sets, daily range): BP systolic 83–143; BP diastolic 47–83
--- NOTE | 2020-04-26 01:01 | NUR ---
3059 - SPOKE WITH PT'S DTR (SALMA). UPDATED HER ON PT STATUS, INCLUDING HIS NEED FOR SEDATION TO MINIMIZE COUGHING AND DESATURATION WHILE ON THE VENT. SHE IS VERY OPTIMISTIC AND HOPEFUL THAT HER FATHER WILL RECOVER. CALLED DTR FROM PT'S TABLET IN THE ROOM SO SHE COULD FACETIME HIM. SHE HAS BEEN ABLE TO SEE AND TALK TO HIM FOR OVER AN HOUR. PT REMAINS UNRESPONSIVE TO ANY VERBAL STIMULI, INCLUDING COMMUNICATION FROM HIS DAUGHTER.
--- NOTE | 2020-04-26 07:41 | NUR ---
PT REMAINS SEDATED ON FENTANYL AND VERSED. HE IS ON MAXIMUM DOSAGES OF BOTH MEDICATION DRIPS. WHEN SEDATION IS DECREASED, PT HAS EXCESSIVE COUGHING AND DECREASED O2 SATS. RT WAS ABLE TO TITRATED FIO2 FROM 90% TO 70% FOR A FEW HOURS THIS MORNING. FIO2 IS BACK UP TO 90% AT THIS TIME DUE TO PT HAVING SUSTAINED 02 SATS IN MID 80S% WHILE COUGHING. COMPLETE BED BATH GIVEN DURING THE NIGHT. REPORT GIVEN TO ONCOMING NURSE. NOT PROGRESSING WELL TOWARD POC GOALS.
--- NOTE | 2020-04-26 17:38 | NUR ---
ASSUMED CARE OF PT AT 0700. PT IS A GCS OF 6 AND HAS BEEN MOSTLY DROWSY. PT HAS BEEN AFIBRILE. VSS. PT CONT TO NEED VERDSED AND FENT GTT FOR VENT MANAGEMENT. DAUGHTER UPDATED ON PT CONDITION AND WERE ABLE TO COMMUNICATE THROUGH THEIR OWN DEVICES LEFT HERE BY FAMILY. PT NOTED TO HAVE INTERMITTENT COUGHING SPELLS THAT CAUSES PT TO DESAT FOR A PERIOD OF TIME ESPECIALLY ON SEDATION BREAK. PULRomulo CONROY AWARE. PT RESTING AT THIS POINT.
[2020-04-27] VITALS (43 sets, daily range): BP systolic 93–155; BP diastolic 55–91
--- NOTE | 2020-04-27 04:11 | NUR ---
SPOKE WITH PT'S DTR (SALMA) AROUND 0045. UPDATED HER ON PT STATUS AND POC. SHE WAS ABLE TO FACETIME PT ON HIS TABLET. PT HAS REMAINED MODERATELY SEDATED WITH FENTANYL AND VERSED FOR VENT MANAGEMENT. HE IS ALSO RECEIVING SCHEDULED HYDROCODONE. HE HAS HAD LESS SEVERE COUGHING EPISODES DURING THE NIGHT. FIO2 TITRATED DOWN FROM 70% TO 60%. TF VIA PEG TUBE, NO RESIDUALS. ORAL CARE PROVIDED. REPOSITIONED TO PREVENT SKIN BREAKDOWN. GOOD URINE OUTPUT VIA CAMPOS. NOT PROGRESSING WELL TOWARD POC GOALS.
[2020-04-27 06:07] LABS: HEMATOCRIT 29.1 % (42.0-52.0); HEMOGLOBIN 9.5 gm/dL (14.0-18.0); MCHC 32.6 g/dL (28.0-37.0); MCV 94.9 fL (80.0-100.0); RBC 3.07 mil/uL (4.50-6.00); RDW 15.8 % (10.5-14.5)
[2020-04-27 06:16] LABS: ANION GAP < 0 mmol/L (7-16); BUN 14 mg/dL (7-18); CALCIUM 8.7 mg/dL (8.5-10.1); CHLORIDE 97 mmol/L (98-107); CO2 44 mmol/L (21-32); CREATININE 0.3 mg/dL (0.7-1.3); GLUCOSE 144 mg/dL (74-106); POTASSIUM 3.9 mmol/L (3.5-5.1); SODIUM 140 mmol/L (136-145)
--- NOTE | 2020-04-27 14:07 | NUR ---
chart review. pt remain on vent support, has trach and peg. noted per note, responds to stimuli. updates provided to [facility]. will cont following as needed for dc needs.
--- NOTE | 2020-04-27 14:34 | NUR ---
ASSUMED CARE OF PT AT 0700. PT TRACH/VENT. REMAINS SEDATED WITH VERSED AND FENTANYL. PT CONTINUES TO HAVE COUGHING SPELLS AFTER BEING TURNED, WHICH MAKES HIS 02 SATS LOW. VSS, SR ON TELE. CAMPOS AND RECTAL TUBE TO DD. TUBE FEEDING PER PEG. SPOKE WITH PT DAUGHTER SALMA THREE TIMES THIS SHIFT TO UPDATE ON CARE. PT NOT PROGRESSINKG TOWMERIT [facility] GOALS.
--- NOTE | 2020-04-27 22:33 | NUR ---
2100 - PT'S DTR SALMA CAME FOR COURTESY VSIIT. SHE WORE APPROPRIATE PPE AND STAYED FOR 15 MIN. SHE WAS UPDATED ON POC AND ABLE TO SEE HER FATHER IN HIS ROOM. RN PRESENT DURING THE VISIT.
[2020-04-28] VITALS (41 sets, daily range): BP systolic 84–119; BP diastolic 52–79
--- NOTE | 2020-04-28 01:32 | NUR ---
PT NOTED TO HAVE SOME BLOOD-TINGED URINE EARLIER IN THE SHIFT. FLUSHED CAMPOS CATHETER TO ENSURE IT WAS NOT CLOGGED WITH CLOTS. IT WAS LATER NOTED THAT PT HAD BLOODY DRAINAGE LEAKING AROUND CATHETER AT URINARY MEATUS. EXISTING CAMPOS CATHETER WAS REMOVED AND EXCHANGED WITH A NEW 16FR CAMPOS. OLD CATHETER NOTED TO HAVE MULTIPLE LARGE CLOTS AND TISSUE OCCLUDING THE TIP. AFTER NEW CAMPOS WAS INSERTED, PT HAD OVER 200ML OF URINE OUTPUT. HEMATURIA PRESENT. PT ALSO HAD SOME BLOOD-TINGED SECRETIONS FROM ET SUCTIONING. NOTIFIED JASMEET ABDALLA NP. ORDER RECEIVED TO HOLD NEXT DOSE OF LOVENOX AND HAVE DRS EVALUATE IN THE MORNING. CBC IS ORDERED FOR THE MORNING. WILL MONITOR URINE FOR ANY MORE CLOTS AND UPDATE REAGENT TENDER HELPER INDICATED. RED FUNGAL EXCORIATED RASH NOTED TO SCROTUM AND PERIAREA. ORDER RECEIVED TO APPLY NYSTATIN POWDER. WILL CONTINUE TO MONITOR CLOSELY.
[2020-04-28 04:02] LABS: HEMATOCRIT 27.6 % (42.0-52.0); HEMOGLOBIN 9.2 gm/dL (14.0-18.0); MCH 31.4 pg (26.0-34.0); MCHC 33.3 g/dL (28.0-37.0); MCV 94.2 fL (80.0-100.0); RBC 2.93 mil/uL (4.50-6.00); RDW 15.6 % (10.5-14.5); WBC 13.3 thou/uL (4.0-11.0)
--- NOTE | 2020-04-28 04:03 | NUR ---
PT CONTINUES TO HAVE HEMATURIA. FLUSHED CAMPOS WITH NS TO ENSURE IT WAS NOT CLOGGED. SOME CLOTS NOTED IN CATHETER TUBING. URINE IS DARK RED WITH SEDIMENT. NO MORE BLOOD NOTED FROM TRACHEAL SECRETIONS WHEN SUCTIONED. NOTIFIED JASMEET ABDALLA NP. ORDERS RECEIVED TO FLUSH CATHETER Q2H AND START CBI IF NO IMPROVEMENT WITH FLUSHING. WILL CONTINUE TO MONITOR CLOSELY.
[2020-04-28 04:08] LABS: CALCIUM 8.5 mg/dL (8.5-10.1); CREATININE 0.5 mg/dL (0.7-1.3); POTASSIUM 4.1 mmol/L (3.5-5.1)
--- NOTE | 2020-04-28 05:10 | NUR ---
PT HAD FEWER COUGHING FITS DURING THE NIGHT, COMPARED TO PREVIOUS FEW NIGHTS. REMAINS ON FENTANYL AND VERSED GTTS FOR VENT MANAGMENT. STILL NO PURPOSEFUL MOVEMENTS. PERRLA. TF AT GOAL RATE VIA PEG TUBE. NO RESIDUALS. AFEBRILE. COMPLETE BED BATH GIVEN. WILL CONTINUE TO MONITOR HEMATURIA AND GIVE REPORT TO ONCOMING NURSE. NOT PROGRESSING TOWARD POC GOALS.
--- NOTE | 2020-04-28 06:54 | NUR ---
FENTANYL DRIP TITRATED DOWN FROM 100MCG/HR TO 75 MCG/HR. VERSED DRIP STILL AT 6MG/HR. PT TOLERATING WELL SO FAR WITHOUT SEVERE COUGHING. WILL GIVE REPORT TO ONCOMING NURSE.
--- NOTE | 2020-04-28 16:10 | NUR ---
PT IS ON SEDATION , RN HAS FOLLOWED ORDER TO TITRATE FENTANYL AT 75MCG/HR AND VERSED 6MG/HR TO REACH RASS SCORE OF 0/-1, PT IS SLEEPING AT MOST OF TIME, BUT PT MOVES HIS HEAD SOMETIMES, PT IS VENTILATOR PC-AC MODE WITH FIO2 100%, PT'S O2SAT KEEP AT 98-100%, PT'S VS ARE STABLE, PT IS TOLERATED TUBE FEEDING AT 75ML/HR , PT IS CONTINUING IV ABX, RN HAS REPORTED TO HOSPITAL DR ABOUT PT HAS HEMATURIA SINCE LAST NIGHT , ORDER TO CONTINUING TO HOLD ENOXAPARIN DOSE AND FLUSH CAMPOS CATHETER NEED, PT HAS 1800ML URINE FROM CAMPOS CATHETER NOW, PT'S HEMATURIA HAS IMPRIVED, URINE MOST CLEAR NOW. RN HAS UPDATED PT'S INFORMATION TO PT'S FAMILY .PT IS RELAXING NOW.
--- NOTE | 2020-04-28 18:12 | NUR ---
PT'S URINE IS CLEAR , NOT BLOOD BY 1700PM, PT HAS TOTAL URINE 2400ML BY THIS TIME.
[2020-04-29] VITALS (46 sets, daily range): BP systolic 83–131; BP diastolic 50–80
--- NOTE | 2020-04-29 03:45 | NUR ---
SEDATION VACAION FOR 30 MINUTES. PT OPENS EYES TO VOICE, MOVES HEAD FROM SIDE TO SIDE, DOS NOT FOLLOW COMMANDS BU FACIAL GRIMACES TO PAIN. PT FIO2 DOWN TO 80% THIS SHIFT. SATS ON 96%. PT IS STABLE, SPOKE TO HIS DAUGHTER WHO FACETIMED HIM AROUND 0120 THIS AM. PT IS NOT PROGESSING WELL TOWARDS POC GOALS
--- NOTE | 2020-04-29 10:54 | NUR ---
Nutrition: REC change tube feeding formula to Vital AF at 75 mL/hr to better meet needs. Add 100 mL H20 flush TID. REC vitamin D replacement.
--- NOTE | 2020-04-29 20:03 | NUR ---
PT AWAKE VENT/TRACH. SEDATED ON FENTANYL AND VERSED. DOSE NOT FOLLOW COMMANDS. VSS, SR ON BLAYNE. TUBE FEEDING PER PEG. FMS/ANDRES TO DD. SPOKE WITH PT DAUGHTER TO UPDATE ON CARE. PT NOT PROGRESSING TOWRADS POC GOALS.
[2020-04-30] VITALS (40 sets, daily range): BP systolic 87–128; BP diastolic 52–81
--- NOTE | 2020-04-30 02:55 | NUR ---
PT HAVING OCCASIONAL COUGHING FITS AND DESATS TO LOWER 80'S ON OXYGEN SATURATION, VERSED AND FENTANYL DRIP TITRATED FOR SEDATION. TUBE FEEDING AT GOAL 75ML/HR, SWITCHED TO VITAL AF PER DIETARY RECOMMENDATION. NO RESIDUALS FROM PEG.CAMPOS WITH CLEAR LIGHT JESUS URINE, FECAL MANAGEMENT IN PLACE.
--- NOTE | 2020-04-30 14:40 | NUR ---
Pt more alert with eyes open and moving his head. Pt appeared to nod his head in response to questions. No spontaneous movement of extremities. Passive ROM done to extremities. Sedation (Versed @ 6 mg/hr and Fentanyl 100 mcg/hr) continues to infuse.
--- NOTE | 2020-04-30 17:00 | NUR ---
Pt's daughter, Jaylin, did ZOOM visit with her Dad on pt's personal tablet. Pt drowsy during the visit and did not show clear recognition of his daughter.
[2020-04-30 17:22] LABS: HEMATOCRIT 30.1 % (42.0-52.0); HEMOGLOBIN 10.2 gm/dL (14.0-18.0); MCH 31.4 pg (26.0-34.0); MCHC 33.8 g/dL (28.0-37.0); MCV 92.7 fL (80.0-100.0); RBC 3.25 mil/uL (4.50-6.00); RDW 16.3 % (10.5-14.5)
[2020-04-30 17:36] LABS: ALBUMIN 2.1 g/dL (3.4-5.0); CALCIUM 8.8 mg/dL (8.5-10.1); CREATININE 0.4 mg/dL (0.7-1.3); MAGNESIUM 1.9 mg/dL (1.8-2.4); POTASSIUM 4.5 mmol/L (3.5-5.1); TOTAL BILIRUBIN 0.4 mg/dL (0.2-1.0); TOTAL PROTEIN 6.6 g/dL (6.4-8.2)
--- NOTE | 2020-04-30 19:30 | NUR ---
Report given to oncoming nurse. Pt had episode of coughing. Suctioned with moderate amt of thin beige secretions obtained. Maintained in Isolation today.
[2020-05-01] VITALS (46 sets, daily range): BP systolic 82–129; BP diastolic 50–75
[2020-05-01 05:33] LABS: HEMOGLOBIN 9.3 gm/dL (14.0-18.0); MCH 31.3 pg (26.0-34.0); MCHC 33.1 g/dL (28.0-37.0); MCV 94.4 fL (80.0-100.0); RBC 2.97 mil/uL (4.50-6.00); RDW 16.2 % (10.5-14.5); WBC 11.8 thou/uL (4.0-11.0)
[2020-05-01 06:04] LABS: CALCIUM 8.5 mg/dL (8.5-10.1); CREATININE 0.3 mg/dL (0.7-1.3); MAGNESIUM 1.8 mg/dL (1.8-2.4); POTASSIUM 3.6 mmol/L (3.5-5.1)
--- NOTE | 2020-05-01 14:55 | NUR ---
pt remains on vent with trach and peg. tf for nutritional support. no anticipated dc over the weekend, [facility] not ready for [facility]. cm spoke with daughter elijah, she still wanting aggressive tx. will cont following as needed for dc needs. " I am really hopeful"/daughter.
[2020-05-02] VITALS (41 sets, daily range): BP systolic 85–145; BP diastolic 52–91
[2020-05-02 06:04] LABS: HEMATOCRIT 26.7 % (42.0-52.0); HEMOGLOBIN 9.2 gm/dL (14.0-18.0); MCH 32.4 pg (26.0-34.0); MCHC 34.5 g/dL (28.0-37.0); MCV 93.9 fL (80.0-100.0); RBC 2.85 mil/uL (4.50-6.00); RDW 16.5 % (10.5-14.5); WBC 12.4 thou/uL (4.0-11.0)
[2020-05-02 06:14] LABS: CALCIUM 8.4 mg/dL (8.5-10.1); CREATININE 0.3 mg/dL (0.7-1.3); MAGNESIUM 1.9 mg/dL (1.8-2.4); POTASSIUM 3.5 mmol/L (3.5-5.1)
--- NOTE | 2020-05-02 07:43 | NUR ---
SPOKE TO SALMA, (PT'S DAUGHTER) AROUND MIDNIGHT AND GAVE UPDATE AND ANSWERED HER QUESTIONS. NO CONCERNS EXPRESSSED.
--- NOTE | 2020-05-02 09:37 | NUR ---
PATIENT OPENS EYES WHEN NAME IS CALLED, DOES NOT FOLLOW COMMANDS BUT DOES NOD HIS HEAD YES AT TIMES BUT IT IS UNCLEAR IF IT IS PURPOSEFUL HE DOES NOT FOLLOW COMMANDS. NO TRACKING NOTED. CONTINUES TO HAVE COUGHING SPELLS THAT WILL DROP SATS TO UPPER 70'S AND IS SLOW TO RECOVER. PATIENT WITH TRACH AND ON VENT. NO FURTHER CONCERNS AT THIS TIME. WILL CONTINUE TO MONITOR AND CARE PER PLAN OF CARE.
--- NOTE | 2020-05-02 12:49 | NUR ---
THIS NURSE WAS UNABLE TO TELL THE PATIENTS MENTATION THIS MORNING THE PATIENT APPEARED TO BE UNABLE TO COMMUNICATE BUT WOULD NOD HEAD YES AT TIMES. PATIENT DID NOT FOLLOW ANY COMMANDS. PATIENT THIS AFTERNOON IS MOUTHING WORDS, NODS YES AND NO APPROPRIATELY, PATIENT STATES THAT HE IS UNABLE TO MOVE ARMS OR LEGS STATING HES NOT STRONG ENOUGH. WILL CALL AND UPDATE NEURO. NO OTHER CONCERNS AT THIS TIME. WILL CONTINUE TO MONITOR AND CARE PER PLAN OF CARE.
--- NOTE | 2020-05-02 15:06 | NUR ---
DR FLOREZ ORDERED PATIENT TO HAVE CT HEAD AND SPINE FOR TODAY 05/02/20 PATIENT RESP STATUS IS NOT STABLE ENOUGH TO TRANSPORT TO CT PER DR WELCH. WILL FOLLOW UP TOMORROW.
[2020-05-03] VITALS (46 sets, daily range): BP systolic 83–141; BP diastolic 51–81
--- NOTE | 2020-05-03 02:35 | NUR ---
ASSUMED CARE OF PATIENT AT 1900. VSS, AFEBRILE. BECOMES EXTREMELY TACHYPNIC AND COUGHS VIOLENTLY WITH ANY CARES DONE. CAMPOS CATHETER LEAKING AT BEGINNING OF SHIFT, REPLACED. FLUSHED SEVERAL TIMES, DRAINING INTO BAG NOW WITHOUT ISSUE. DAUGHTER SALMA CALLED. DISCUSSED POC. ALL QUESTIONS ANSWERED. WORKING TOWARDS POC GOALS.
[2020-05-03 06:21] LABS: HEMATOCRIT 27.7 % (42.0-52.0); HEMOGLOBIN 9.4 gm/dL (14.0-18.0); MCH 31.9 pg (26.0-34.0); MCHC 33.9 g/dL (28.0-37.0); RBC 2.94 mil/uL (4.50-6.00)
[2020-05-03 06:41] LABS: CALCIUM 8.3 mg/dL (8.5-10.1); CREATININE 0.4 mg/dL (0.7-1.3); MAGNESIUM 1.9 mg/dL (1.8-2.4); POTASSIUM 3.6 mmol/L (3.5-5.1)
--- NOTE | 2020-05-03 13:26 | NUR ---
PATIENT REMAINS AWAKE AND ALERT, PLEASANT AND COOPERATIVE WITH CARES. PATIENT STATES HIS PAIN IS BETTER TODAY. PATIENT SEEMS TO BE MUCH MORE AWAKE, FOLLOWS COMMANDS AND COMMUNICATES BY MOUTHING WORDS AND NODDING HEAD. PATIENT HAS EVEN SMILED A FEW TIMES TODAY. BREATHING SEEMS TO BE GETTING BETTER HE IS HAVING LESS COUGHING FITS AND MAINTAINING O2 SATS OF 94-95%. URINE OUTPUT IS BETTER. PATIENT TURNED Q2H FOR COMFORT AND PRESSURE RELIEF. NO FURTHER CONCERNS AT THIS TIME. PATIENT IS PROGRESSING TOWARDS GOALS. WILL CONTINUE TO MONITOR AND CARE PER PLAN OF CARE.
[2020-05-04] VITALS (44 sets, daily range): BP systolic 81–156; BP diastolic 53–93
[2020-05-04 05:58] LABS: CALCIUM 8.8 mg/dL (8.5-10.1); CREATININE 0.4 mg/dL (0.7-1.3); MAGNESIUM 1.9 mg/dL (1.8-2.4); POTASSIUM 3.8 mmol/L (3.5-5.1)
[2020-05-04 09:49] LABS: BE(vivo) 9.8 mmol/L (-2 to +3); HCO3 34.8 mmol/L (22.0-26.0); PCO2 49.1 mmHg (35.0-45.0); PO2 75.3 mmHg (80.0-100.0); pH 7.468 (7.360-7.450); sO2 95.7 % (92.0-98.0)
--- NOTE | 2020-05-04 09:58 | NUR ---
cm faxed updated clinical to [facility], will need auth again. hospitalist to reach out to pt daughter to let her know the dr are ready for dc to [facility]. dc precedex, versed, and fentanyl.
--- NOTE | 2020-05-04 11:16 | NUR ---
Nutrition: Vitamin D 24.9. REC replacement.
[2020-05-04 13:51] LABS: HEMOGLOBIN 9.9 gm/dL (14.0-18.0); MCH 31.6 pg (26.0-34.0); MCV 95.7 fL (80.0-100.0); RBC 3.14 mil/uL (4.50-6.00); RDW 18.3 % (10.5-14.5); WBC 14.2 thou/uL (4.0-11.0)
[2020-05-05] VITALS (44 sets, daily range): BP systolic 81–164; BP diastolic 53–98
[2020-05-05 04:20] LABS: HCO3 36.8 mmol/L (22.0-26.0); PCO2 59.4 mmHg (35.0-45.0); PO2 92.6 mmHg (80.0-100.0)
[2020-05-05 05:36] LABS: HEMATOCRIT 35.4 % (42.0-52.0); HEMOGLOBIN 11.5 gm/dL (14.0-18.0); MCH 30.6 pg (26.0-34.0); MCHC 32.6 g/dL (28.0-37.0); MCV 93.8 fL (80.0-100.0); RBC 3.78 mil/uL (4.50-6.00); RDW 17.3 % (10.5-14.5); WBC 14.6 thou/uL (4.0-11.0)
[2020-05-05 05:54] LABS: PLATELET COUNT 531 thou/uL (150-400)
[2020-05-05 06:12] LABS: ALBUMIN 2.4 g/dL (3.4-5.0); CALCIUM 9.2 mg/dL (8.5-10.1); CREATININE 0.4 mg/dL (0.7-1.3); POTASSIUM 3.9 mmol/L (3.5-5.1); TOTAL BILIRUBIN 0.5 mg/dL (0.2-1.0); TOTAL PROTEIN 7.2 g/dL (6.4-8.2)
--- NOTE | 2020-05-05 07:29 | NUR ---
ASSUMED CARE 1900. PT RESTLESS, AND CAUGHING PERIODICALLY . NODES HIS HEART , TO ACKNOWLDGE PAIN. PRN PAIN MEDICATIONS GIVEN. PT ALSO HAVE A FEVER THROUGH THE NIGHT UPTO 101.8. TYLENOL GIVEN PRN. CURRENT TEMP THIS AM 100.0. FAMILY UPDATED ABOUT PT CONDITION. MINIMAL SECRETIONS THROUGH THE TRACH. PT OTHERWISE AWAKE. SOMEWHAT FOLLOWS COMMANDS BUT DOES NOT MOVE UPPER OR LOWER EXTREMITIES. FECAL MANAGEMENT AND CAMPOS CATHETER INTACT. GOOD URINE OUTPUT. NO OTHER CONCERNS. WILL CONTINUE TO MONITOR AND FOLLOW POC.
--- NOTE | 2020-05-05 08:43 | NUR ---
[facility] liaison reach out to daughter who is ok with dad dc earlier in the day if he is ready. kcfd form completed, chart copy completed. cm reached out to hospitalist to see if he was going to be ready for [facility] today since they got auth yesterday and only good till monday. per no pt is septic again per md duran notified [facility] will not be dc today
[2020-05-05 13:25] LABS: ABSOLUTE NEUTROPHILS 11.5 thou/uL (1.4-8.2); POLYCHROMASIA OCCASIONAL
[2020-05-05 13:26] LABS: ANISOCYTOSIS 1+; SCHISTOCYTES OCCASIONAL
[2020-05-05 13:30] LABS: URINE BILIRUBIN 1+ (Negative); URINE BLOOD 3+ (Negative); URINE CLARITY CLOUDY; URINE COLOR BROWN; URINE GLUCOSE-RANDOM* NEGATIVE (Negative); URINE KETONES NEGATIVE (Negative); URINE NITRITE-REFLEX NEGATIVE (Negative); URINE PROTEIN (DIPSTICK) 2+ (Negative); URINE SPECIFIC GRAVITY 1.025 (1.005-1.035); URINE UROBILINOGEN >= 8.0 E.U./dl (0.2-1.0)
[2020-05-05 13:31] LABS: URINE LEUKOCYTES-REFLEX 1+ (Negative)
[2020-05-05 13:32] LABS: ICTOTEST (BILI CONFIRMATORY) Positive (Negative)
[2020-05-05 13:32] LABS: MACROCYTES FEW; MICROCYTES FEW
[2020-05-05 14:08] LABS: URINE RBC >20 Many /HPF (0-2); YEAST-REFLEX Present (None Seen)
[2020-05-05 14:09] LABS: CALCIUM OXALATE 0-3 Few /LPF (None Seen); CASTS None Seen /LPF (None Seen)
[2020-05-05 14:10] LABS: SQUAMOUS 0-3 Few /LPF (0-3)
--- NOTE | 2020-05-05 19:32 | NUR ---
RECEIVED PATIENT REPORT FROM SARA ROBLERO. ASSUMED PATIENT CARE AT THIS TIME. HEATER ENGINEER HELPER INFORMED THIS NURSE THAT HE DROPPED THE FIO2 TO 60% AT THIS TIME.
--- NOTE | 2020-05-05 19:39 | NUR ---
CT COMPLETED OF HEAD AND C-SPINE, SCAN WAS NEGATIVE. NO MOVEMENT NOTED TO EXTREMITIES. PASSIVE RANGE OF MOTION COMPLETED DURING BATH. BLOOD CULTURES, SPUTUM CULTURE, STOOL CULTURE AND URINE CULTURES SENT TODAY. CONTINUES TO ANSWER YES/NO QUESTIONS APPROPRIATELY. ZOOM VIDEO FACETIME FACILITATED WITH DAUGHTER ALIVIA. TMAX 99.4
[2020-05-06] VITALS (39 sets, daily range): BP systolic 91–153; BP diastolic 57–87
--- NOTE | 2020-05-06 07:36 | NUR ---
RECIEVED REPORT FROM OSBALDO CONTRERAS. ASSUMED CARES AT THIS TIME.
[2020-05-06 10:53] LABS: HEMOGLOBIN 11.1 gm/dL (14.0-18.0); MCH 30.9 pg (26.0-34.0); MCHC 32.6 g/dL (28.0-37.0); MCV 94.7 fL (80.0-100.0); PLATELET COUNT 509 thou/uL (150-400); RBC 3.59 mil/uL (4.50-6.00); RDW 17.9 % (10.5-14.5); WBC 18.4 thou/uL (4.0-11.0)
[2020-05-06 11:34] LABS: ABSOLUTE NEUTROPHILS 16.4 thou/uL (1.4-8.2); ANISOCYTOSIS 1+; MYELOCYTES 1 %
--- NOTE | 2020-05-06 14:09 | NUR ---
cm notified that pt possible ready for [facility] today. [facility] is able to accept today if fever free 24hr. cm waiting to hear from hospital who checking with id .
[2020-05-06] MEDS ORDERED: IPRAT-ALBUT 0.5-3 ML INH (15:05)
[2020-05-06] MEDS ORDERED: ACETAMINOP160 MG/5 M PER TUBE (15:06)
[2020-05-06] MEDS ORDERED: PULMICORT0.5 MG/21 INH (15:07)
[2020-05-06] MEDS ORDERED: ROBITUSSIN100 MG/53 PER TUBE (15:07)
[2020-05-06] MEDS ORDERED: HUMULIN N100 UNIT/1 SUBQ (15:07)
[2020-05-06] MEDS ORDERED: NYAMYC15 GM TOP (15:08)
[2020-05-06] MEDS ORDERED: PREDNISONE 10 M10 M1 PO (15:08)
[2020-05-06] MEDS ORDERED: MEROPENEM1 GM IV (15:09)
[2020-05-06] MEDS ORDERED: FLUCONAZOL400 MG/205 IVPB (15:09)
[2020-05-06] MEDS ORDERED: VANCOMYCIN1 GM/2002 IV (15:09)
--- NOTE | 2020-05-06 15:23 | NUR ---
cm notified by cm team that dr astudillo, crispin and all md on case agree ready for dc to [facility] this evening. chart copy requested, bedside nurse to call report to [facility]. faxed dc order to [facility]. [facility] transport from giving to bedside nurse. daughter to be notified by bedside nurse and md for dc today.
--- NOTE | 2020-05-06 15:48 | NUR ---
FAXED AMB. FORM TO [facility] ARRANGED TRANSPORT FOR 1730 TODAY AND NOTIFIED UNIT.
--- NOTE | 2020-05-06 17:09 | NUR ---
PATIENT REMAINS AWAKE AND ALERT TODAY. PAIN NOTED THROUGH OUT DAY WITH INCREASE IN ANXIETY. MEDICATIONS GIVEN PER ORDERS AND HELPS SIGNIFICANTLY. PATIENT CONTINUES TO DESAT WHEN HAVING COUGHING SPELLS. COUGH MEDICATION ALSO HELPS WITH THIS. TRACH REMAINS INTACT. PATIENT TOLERATING TUBE FEEDS WITH NO RESIDULE. H2O FLUSHES PER ORDERS. ORDERS RECIEVED FOR PATIENT TO TRANSFER TO [facility], PATIENT DAUGHTER SALMA UPDATED. SHE EXPRESSED THAT SHE WOULD LIKE TO SPEAK WITH THE PHYSICIAN, MESSAGE SENT TO HOSPITALIST. REPORT CALLED TO OSBALDO ELIAS AT [facility]. AWAITING TRANSPORT AT THIS TIME. NO FURTHER CONCERNS, WILL CONTINUE TO MONITOR AND CARE PER PLAN OF CARE.
--- NOTE | 2020-05-06 20:42 | NUR ---
PATIENT LEFT UNIT VIA EMS. PATIENT TRANSFERRED TO [facility]. PATIENT BELONGINGS SENT WITH PATIENT. PEDRO ROBLERO NOTIIFED PATIENT'S DAUGHTER ALIVIA IN PERSON.
== END 2020-05-06 20:44 | DRG 4 ==
LOC: ER 10:34 → ICU 12:13 → EROBS 12:13 → ICU 17:15
PROVIDERS: Emergency Medicine; Hospitalist; Internal Medicine; Internal Medicine Pulmonary Disease; Nurse Practitioner; Pediatrics; Specialist; ADMIT Hospitalist; ATTEND Hospitalist
DX: A41.89 Other specified sepsis (principal); U07.1 COVID-19; J96.01 Acute respiratory failure with hypoxia; E43 Unspecified severe protein-calorie malnutrition; J12.89 Other viral pneumonia; N17.0 Acute kidney failure with tubular necrosis; J96.02 Acute respiratory failure with hypercapnia; E87.1 Hypo-osmolality and hyponatremia; I82.90 Acute embolism and thrombosis of unspecified vein; E87.3 Alkalosis; J93.9 Pneumothorax, unspecified; Z68.41 Body mass index [BMI] 40.0-44.9, adult; K56.7 Ileus, unspecified; K94.23 Gastrostomy malfunction; I10 Essential (primary) hypertension; I48.91 Unspecified atrial fibrillation; E66.01 Morbid (severe) obesity due to excess calories; I95.89 Other hypotension; R73.9 Hyperglycemia, unspecified; I27.20 Pulmonary hypertension, unspecified; E87.6 Hypokalemia; R58 Hemorrhage, not elsewhere classified; G83.89 Other specified paralytic syndromes; D69.6 Thrombocytopenia, unspecified; Y83.8 Other surgical procedures as the cause of abnormal reaction of the patient, or of later complication, without mention of misadventure at the time of the procedure; Y73.8 Miscellaneous gastroenterology and urology devices associated with adverse incidents, not elsewhere classified; Y92.89 Other specified places as the place of occurrence of the external cause; Z79.899 Other long term (current) drug therapy
CPT/HCPCS: 10078; 27000; 50101; 50249; 50386; 50403; 50411; 50555; 50558; 53307; 53310; 56525; 56526; 62110; 62900; 85026